=== PATIENT | female | born 1985 | race Caucasian/White ===

== ENCOUNTER → 2020-12-22 10:00 | Outpatient (CLI) | payer OTHER, MEDICAID, SELFPAY ==
--- NOTE | 2020-12-22 10:01 | DI.RAD.S_ITS ---
PROCEDURE: XR FINGER RT MIN 2V INDICATIONS: finger pain TECHNIQUE: AP hand, 2 views of the 3rd finger(s) acquired. COMPARISON: [facility], , FINGER RT, 02/10/2010, 12:34. FINDINGS: Bones: No fractures or dislocations. No suspicious bony lesions. Soft tissues: No suspicious soft tissue calcifications. IMPRESSION: No visualized acute fracture or dislocation. However, if clinical concern and/or pain persist, short interval imaging followup in 7-10 days is recommended, as occult injury cannot be definitively excluded. Dictated by: Odette Moeller M.D. on 12/22/2020 at 10:52 Approved by: Odette Moeller M.D. on 12/22/2020 at 10:53
== END ==
PROVIDERS: Family Provider Family Medicine; PCP Family Medicine; Referring Provider Nurse Practitioner Family; Visit Provider Nurse Practitioner Family
DX: M79.644 Pain in right finger(s) (principal)
CPT/HCPCS: 73140

== ENCOUNTER → 2021-06-25 09:39 | Outpatient (CLI) | payer OTHER, MEDICAID, SELFPAY ==
--- NOTE | 2021-06-25 | DI.US.S_ITS ---
PROCEDURE: US ABDOMEN LIMITED INDICATIONS: SOFT TISSUE MASS MIDLINE UPPER BACK TECHNIQUE: Real-time focused scanning was performed of the inguinal region, with image documentation. COMPARISON: None. FINDINGS: There is an a capsulated fatty mass measuring 4.0 x 3.2 x 1.1 cm in the area palpated by the patient at the midline upper back. IMPRESSION: Soft tissue lipoma. Please note, a lipoma can be difficult to differentiate from the very rare liposarcoma by ultrasound examination. If there is a history of rapid growth, further characterization may be warranted. Dictated by: Zulma Purcell M.D. on 06/25/2021 at 10:56 Approved by: Zulma Purcell M.D. on 06/25/2021 at 10:58
== END ==
PROVIDERS: Family Provider Family Medicine; PCP Family Medicine; Referring Provider Family Medicine; Visit Provider Family Medicine
DX: D17.1 Benign lipomatous neoplasm of skin and subcutaneous tissue of trunk (principal)
CPT/HCPCS: 76705

== ENCOUNTER → 2021-08-03 13:16 | Outpatient (CLI) | payer OTHER, MEDICAID, SELFPAY ==
[2021-08-03 14:08] LABS: COVID19 -Nasal RAPID Negative (Negative)
== END ==
PROVIDERS: Family Provider Family Medicine; PCP Family Medicine; Visit Provider Surgery
DX: Z20.822 Contact with and (suspected) exposure to COVID-19 (principal); Z01.812 Encounter for preprocedural laboratory examination
CPT/HCPCS: 87635; C9803

== ENCOUNTER 2021-08-04 08:14 | Day surgery (SDC) | payer OTHER, MEDICAID, SELFPAY ==
[2021-07-29 12:37] VITALS: BMI 37.9
[2021-08-04] VITALS (7 sets, daily range): BP systolic 107–125; BP diastolic 67–86; PULSE 73–100; RESP 11–20; TEMP 36.1–36.6; O2SAT 97–100; BMI 37.9
--- NOTE | 2021-08-04 | PATH_ITS ---
[facility] Accession Number: [id number] . 01 Material submitted: . back - BACK MASS . 01 Clinical history: . SDC LOCALIZED SWELLING, MASS AND LUMP, TRUNK . 01 Diagnosis: Back, Excision: Mature adipose tissue, consistent with lipoma. MRV 08/07/2021 1051 Local . 01 Electronically signed: . John Bolivar MD, Dermatopathologist NPI- [id number] . 01 Gross description: . Received in formalin, labeled with the patient's name and back mass, and consists of a yellow, lobulated, roughened, unoriented fragment of soft tissue measuring 4.5 x 3.4 x 2.5 cm. The external surface is inked blue. Serial sectioning reveals a yellow, soft, homogenous cut surface. Sales Service Assistant sections are submitted in cassettes A1-A2. ([id number]) /[facility] 08/07/2021 0243 Local . 01 Pathologist provided ICD-10: D17.9 . 01 CPT . 029609 Specimen Comment: A courtesy copy of this report has been sent to [phone] Performed at: 01 [facility] [address] [place] [id number] MD Eliezer Jimenez MD Phone: [phone]
[2021-08-04] MEDS: LACTATED RINGERS 1,000 ML 84 ML IV (09:03)
--- NOTE | 2021-08-04 09:04 | PM.HP.1 ---
History of Present Illness History of Present Illness Date Patient Seen: 08/04/21 Time Patient Seen: 09:04 Chief complaint: SDC Narrative: Sandra is here for her lipoma removal from her left upper back. See the office note from June for details. Patient History Medical History (Updated 08/04/21 @ 08:39 by Annie Arriola RN) COVID-19 virus infection (02/2021) Hidradenitis suppurativa Sinusitis Surgical History (Updated 07/29/21 @ 12:39 by Morena Lutz RN) No history of previous surgery Family & Social History Family History Mother Hypertension Diabetes mellitus Social History: household members significant other Tobacco & Substance use: Smoking Status Former smoker alcohol intake current alcohol intake frequency a few times a month Substance Use Type does not use Meds Home Medications and Allergies Home Medications Medication Instructions Recorded Confirmed Type No Known Home Medications 07/06/21 08/04/21 History Allergies Allergy/AdvReac Type Severity Reaction Status Date / Time ketorolac [From Toradol] Allergy Intermediate Hives Verified 08/04/21 08:37 tramadol Allergy Intermediate Hives Verified 08/04/21 08:37 Exam Vital Signs (past 8 hours): - 08/04/21 09:00 Temperature 98 F Pulse Rate 80 Respiratory Rate 16 Blood Pressure 116/73 Pulse Oximetry 99 Oxygen Delivery Method Room Air Oxygen Delivery Method Room Air Narrative Exam Narrative: Back mass is unchanged from prior exams Assessment & Plan Assessment and plan (1) Subcutaneous mass of back: Status: Acute Plan Plan for excision of the left upper back mass. Patient will be asleep and in the right lateral decubitus position COVID-19 COVID-19 status: Negative Result date/Date tested (Pos, Neg/Pending): 08/03/21 Time Spent With Patient Critical Care time: I spent a total of [] minutes of critical care time on this patient's care today; this time is exclusive of procedural time.
[2021-08-04] MEDS: LIDOCAINE 1% W/EPI 20 ML INJ (09:48)
[2021-08-04] MEDS: BUPIVACAINE 0.25% (PF) VIAL 30 ML INJ (09:49)
--- NOTE | 2021-08-04 09:53 | SUR.OPER ---
LEFT Lateral on a moran bag, head on pillow, gel axillary roll in place, bottom leg bent with gel pad under knee to foot, upper leg straight and supported with pillows. Upper arm supported by pillows and secured over bottom arm to padded arm board. Safety belt at hip, tape over blanket lower legs.
--- NOTE | 2021-08-04 10:30 | PM.OP.1 ---
Operative Date/Time/Diagnoses Date of procedure: 08/04/21 Time of procedure: 10:30 Pre-op diagnosis: Back mass Procedure & Clinicians Procedure: Excisional biopsy of left upper back mass Same procedure as scheduled: Yes Surgeon: Cyril Cedeño Operative Notes Procedure in detail: The patient was brought to the operating room and general anesthesia was induced. Antibiotics were required due to the wound class of 1. Patient was then positioned in the right lateral decubitus positions of the her left side was facing up. The left upper back was prepped and draped in the usual fashion and a time-out was performed. We injected lidocaine into the skin and subcutaneous tissue over the mass and then created a 5 cm transverse incision over the mass. Mass was deep and lying along the left trapezius muscle fascia. Additional local was injected along the trapezius muscle fascia. Mass was about 5 cm and appeared to be a lipoma. A few bleeders were cauterized. We then injected Marcaine into the wound and the dermis. We then closed the incision in layers using multiple interrupted 3-0 Vicryl dermal sutures followed by a running 4 Monocryl subcuticular stitch. Post-operative Condition: stable Disposition: PACU
[2021-08-04] MEDS: OXYCODONE/ACETAMINOPHEN 5/325 TABLET 1 TAB PO (10:38)
[2021-08-04] MEDS: ONDANSETRON 4 MG/2 ML INJ IV (10:39)
== END 2021-08-04 11:20 | disposition home or self-care (01) ==
PROVIDERS: Family Provider Family Medicine; PCP Family Medicine; Referring Provider Surgery; Visit Provider Surgery
PROC: (CPT 21931; principal; 2021-08-04 09:15)
DX: D17.1 Benign lipomatous neoplasm of skin and subcutaneous tissue of trunk (principal); Z86.16 Personal history of COVID-19
CPT/HCPCS: 21931; 81025; J1100; J2250; J2405; J2704; J3010

== ENCOUNTER 2021-09-06 19:47 | Emergency (ER) | payer OTHER, MEDICAID, SELFPAY ==
[2021-09-06 20:06] VITALS: BP 128/88; PULSE 77; RESP 20; TEMP 37.1; O2SAT 100; BMI 36.9
--- NOTE | 2021-09-06 21:05 | PC.NURSE ---
Pt states she has had all other wisdom teeth removed except for her bottom left one. She said the tooth has now cracked and is causing her significant pain. Also, states she has a very bad taste in her mouth. She is 8 weeks . Reports taking more tylenol than she probably should she states she takes 2 Tylenol every 4-5 hours.
--- NOTE | 2021-09-06 22:11 | ED.DENTAL ---
HPI - Dental/Oral General Chief complaint: Dental/Oral Stated complaint: TOOTH INFECTION, 8 WEEKS Time Seen by Provider: 09/06/21 22:10 Source: patient Mode of arrival: Ambulatory History of Present Illness HPI Narrative: 36-year-old woman presents with significant dental pain. After waiting 2 hours and 24 minutes she felt that the weight was excessive and after I walked into the room she declined any additional help, evaluation, examination or recommendations and chose to leave the emergency department. Related Data Allergies Allergy/AdvReac Type Severity Reaction Status Date / Time ketorolac [From Toradol] Allergy Intermediate Hives Verified 09/06/21 20:05 tramadol Allergy Intermediate Hives Verified 09/06/21 20:05 Patient History Medical History (Updated 09/06/21 @ 22:13 by Marga Malhotra MD) COVID-19 virus infection (02/2021) Hidradenitis suppurativa Sinusitis Surgical History (Updated 08/19/21 @ 09:35 by Natanael Burciaga RN) S/P excision of lipoma Family History Mother Hypertension Diabetes mellitus Social History household members: significant other Smoking Status: Former smoker alcohol intake: current Smoking Status: Former smoker alcohol intake frequency: a few times a month Substance Use Type: does not use Exam Initial Vital Signs Initial Vital Signs: Vital Signs Temperature 98.8 F 09/06/21 20:06 Pulse Rate 77 09/06/21 20:06 Respiratory Rate 20 09/06/21 20:06 Blood Pressure 128/88 09/06/21 20:06 Pulse Oximetry 100 09/06/21 20:06 Oxygen Delivery Method 09/06/21 20:06 Course Vital Signs Vital signs: Vital Signs - 8 hr 09/06/21 20:06 Temperature 98.8 F Pulse Rate 77 Respiratory Rate 20 Blood Pressure 128/88 Pulse Oximetry 100 Oxygen Delivery Method Room Air MDM - Dental/Oral MDM Narrative Medical decision making narrative: No exam done, patient chose to leave immediately after introductions. Discharge Plan Departure Patient Disposition: Home Clinical Impression: Pain, dental Referrals: Joseph Garcia MD [Primary Care Provider] -
== END 2021-09-06 22:18 | disposition home or self-care (01) ==
PROVIDERS: Emergency Provider Emergency Medicine; Family Provider Family Medicine; PCP Family Medicine
DX: K08.89 Other specified disorders of teeth and supporting structures (principal)
CPT/HCPCS: 99281

== ENCOUNTER → 2021-09-23 09:45 | Outpatient (CLI) | payer OTHER, MEDICAID, SELFPAY ==
--- NOTE | 2021-09-23 09:46 | DI.US.S_ITS ---
PROCEDURE: US OB <= 14 WEEKS FETUS INDICATIONS: dating and viability OUTSIDE/PRIOR DATING DATA: Last menstrual period (LMP): 07/13/2021. LMP-based estimated date of delivery (HARSH): 04/19/2022. First dating scan (date and location): 09/23/2021. TECHNIQUE: Real-time scanning was performed of the fetus and maternal pelvic organs, with image documentation. Endovaginal scanning was also performed to better visualize the fetus and maternal ovaries. COMPARISON: None. FINDINGS: Embryo: An intrauterine gestation is seen. No cardiac activity is seen, despite multiple attempts. Subchorionic hemorrhage is seen on the right, measuring 1.2 x 0.7 x 0.5 cm. The crown-rump length measures 2 cm, which corresponds to an estimated gestational age of 8 weeks 4 days. Maternal organs: Ovaries are within normal limits, with a likely left corpus luteum. IMPRESSION: demise, with no cardiac activity seen, despite multiple attempts. A small focus of perigestational hemorrhage can be seen. Note: Concordant preliminary findings given by the mediator upon the completion of the examination to Dr. De La Rosa at 10:20 a.m. on September 23, 2021. We strive to produce accurate, complete, and clear reports of imaging services. To assist us in improving patient care, this report was composed using standard report templates and voice recognition software. Therefore, it may contain abnormal punctuation, insertions and/or omissions. Occasional wrong-word or sound-alike substitutions may occur. Though we review the report and make efforts to correct it, we do recommend that the report be read carefully in proper context to recognize any text inaccuracies. Dictated by: Martin Rodriguez M.D. on 09/23/2021 at 10:58 Approved by: Martin Rodriguez M.D. on 09/23/2021 at 11:01
[2021-09-23 11:17] LABS: Add Manual Diff / Slide Review NO; Basophils Absolute Auto 100 /uL (0-100); Basophils Percent Auto 0.6 % (0-2); Eosinophils Absolute Auto 300 /uL (0-450); Eosinophils Percent Auto 3.1 % (2-4); Hematocrit 40.3 % (36-46); Hemoglobin 13.9 g/dL (12.0-16.0); Lymphocytes Absolute Auto 2100 /uL (1100-4500); Lymphocytes Percent Auto 23.7 % (25-40); Mean Corpuscular HGB Conc 34.5 % (30-36); Mean Corpuscular Hemoglobin 31.4 PG (26-34); Monocytes Absolute Auto 900 /uL (0-900); Monocytes Percent Auto 10.2 % (3-14); Neutrophils Absolute Auto 5600 /uL (1500-7000); Neutrophils Percent Auto 62.4 % (50-75); Platelet Count 256 X10^3/uL (150-400); Red Blood Cell Count 4.43 X10^6/uL (4.0-5.2); Red Cell Distribution Width 12.1 % (11.6-14.8)
[2021-09-23 12:19] LABS: Appearance Urine UA CLEAR; Bilirubin Urine UA NEGATIVE (NEGATIVE); Color Urine UA YELLOW; Glucose Urine UA NEGATIVE (Negative); Ketones Urine UA NEGATIVE (NEGATIVE); Leukocyte Esterase Urine UA NEGATIVE (NEGATIVE); Nitrite Urine UA NEGATIVE (Negative); Occult Blood Urine UA NEGATIVE (Negative); Protein Urine UA NEGATIVE (Negative); Specific Gravity Urine UA <=1.005 (1.000-1.035); Urobilinogen Urine UA 0.2 E.U./dL (0.2)
[2021-09-23 12:21] LABS: pH Urine UA 6.5 (4.5-8.0)
[2021-09-24 05:20] LABS: RPR Screen Non Reactive (Non Reactive)
[2021-09-24 07:39] LABS: Varicella IgG Antibody 900 index (Immune >165)
[2021-09-24 19:32] LABS: HIV 1 & 2 Ab/Ag 4th Gen Combo NEGATIVE (NEGATIVE); Hepatitis B Surface Antigen NEGATIVE s/c (NEGATIVE); Rubella Antibody IgG 28.5 IU/mL (>15)
[2021-09-24 20:04] LABS: Hep C Virus Ab w/Reflex Quant NEGATIVE s/c (NEGATIVE)
== END ==
PROVIDERS: Family Provider Family Medicine; PCP Family Medicine; Referring Provider Obstetrics & Gynecology; Visit Provider Obstetrics & Gynecology
DX: O02.1 Missed abortion (principal)
CPT/HCPCS: 36415; 76801; 76817; 80055; 81003; 86787; 86803; 86850; 86900; 86901; 87086; 87389

== ENCOUNTER 2021-09-29 11:47 | Emergency (ER) | payer OTHER, MEDICAID, SELFPAY ==
[2021-09-29 11:52] VITALS: BP 137/74; PULSE 87; RESP 15; TEMP 35.7; O2SAT 95; BMI 35.9
--- NOTE | 2021-09-29 11:55 | DI.US.S_ITS ---
PROCEDURE: US OB <= 14 WEEKS FETUS INDICATIONS: 11 weeks miscarriage,Dr De La Rosa wanted repeat US OUTSIDE/PRIOR DATING DATA: Last menstrual period (LMP): July 13, 2021 LMP-based estimated date of delivery (HARSH): April 19, 2022 First dating scan (date and location): September 23, 2021 Estimated date of delivery (HARSH) from first dating scan: Applicable TECHNIQUE: Real-time scanning was performed of the fetus and maternal pelvic organs, with image documentation. Endovaginal scanning was also performed to better visualize the fetus and maternal ovaries. COMPARISON: [facility], US, US OB <= 14 WEEKS FETUS, 09/23/2021, 10:02. FINDINGS: Embryo: Intrauterine identified. pole is identified. pole measures 1.8 centimeters corresponding to estimated ultrasound gestational age of 8 weeks 2 days. Heart rate: No heart motion identified. Maternal organs: Probable left corpus luteal cyst noted. IMPRESSION: Intrauterine with ultrasound estimated gestational age of 8 weeks 2 days. No heart motion identified compatible with demise. Dictated by: Jesika Meza MD, PhD on 09/29/2021 at 12:08 Approved by: Jesika Meza MD, PhD on 09/29/2021 at 12:11
--- NOTE | 2021-09-29 12:38 | ED_ITS ---
HPI - General Chief complaint: Vaginal Bleeding Stated complaint: Thinks miscarriage- 11 wks Time Seen by Provider: 09/29/21 12:37 Source: patient Mode of arrival: Ambulatory Limitations: no limitations History of Present Illness HPI Narrative: This is a 36-year-old AB3, last menstrual period 07/13/2021 has recently had OB ultrasound showing no heart tones. Patient has had an incomplete miscarriage. She is scheduled for D&C tomorrow morning at 7:45 a.m.. Early this morning at 3:00 a.m. she started having increasing cramping particularly in her back but also somewhat in her front and vaginal bleeding. She states she had a large amount of bleeding initially. She has not been going through more than a pad an hour. She states she is gone through 1 menstrual pad since then. Patient states no fevers or chills. No lightheadedness or passing out, no chest pain or shortness of breath. She denies any GI or urinary issues. No nausea or vomiting. Patient is following with Dr. De La Rosa for her OBGYN. Related Data Home Medications Medication Instructions Recorded Confirmed doxylamine succinate 25 mg tablet 50 mg PO BEDTIME PRN Sleep 09/14/21 09/30/21 prenat.vits,daryl,rkf-dlcy-alijb 1 tab PO DAILY 09/14/21 09/30/21 pyridoxine (vitamin B6) 100 mg 100 mg PO DAILY 09/14/21 09/30/21 tablet Previous Rx's Medication Instructions Recorded hydrocodone 5 mg-acetaminophen 325 1 tab PO Q6H PRN pain #7 tabs 09/29/21 mg tablet Allergies Allergy/AdvReac Type Severity Reaction Status Date / Time ketorolac [From Toradol] Allergy Intermediate Hives Verified 09/30/21 07:02 tramadol Allergy Intermediate Hives Verified 09/30/21 07:02 Review of Systems Review of Systems ROS Unobtainable: All systems reviewed & are unremarkable except as noted in HPI and below Exam Narrative Exam Narrative: GENERAL: Alert and oriented x three, female in mild distress HEENT: Head normocephalic, atraumatic, EOMI, pupils reactive, face symmetric, moist mucous membranes NECK: Supple, full range of motion CARDIOVASCULAR: Regular rate and rhythm without murmurs, rubs or gallops. RESPIRATORY: Breath sounds equal bilaterally, no wheezes rales or rhonchi. ABDOMEN: Soft, mildly tender. Normoactive bowel sounds all 4 quadrants. No guarding or rebound, rigidity, no mass : No CVA tenderness EXTREMITIES: Normal range of motion, no clubbing or edema. Neurovascularly intact NEUROLOGICAL: Cranial nerves II through XII grossly intact. Moving all extremities SKIN: Warm, dry, no petechiae, no rashes or lesions. Initial Vital Signs Initial Vital Signs: Vital Signs Temperature 96.3 F L 09/29/21 11:52 Pulse Rate 87 09/29/21 11:52 Respiratory Rate 15 09/29/21 11:52 Blood Pressure 137/74 09/29/21 11:52 Pulse Oximetry 95 09/29/21 11:52 Oxygen Delivery Method 09/29/21 11:52 Course Orders Ordered: Discontinued Medications Acetaminophen (Acetaminophen 325 Mg Tablet) 975 mg PO NOW ONE Stop: 09/29/21 13:23 Last Admin: 09/29/21 13:56 Dose: Not Given Documented By: PETE Hydrocodone Bitart/Acetaminophen (Hydrocodone/Acet 5/325 Tablet) 2 tab PO NOW ONE Stop: 09/29/21 13:33 Last Admin: 09/29/21 13:49 Dose: 2 tab Documented By: PETE(2) Rho Immune Globulin (Rho(D) Immune Globulin 1,500 Unit Syringe) 1,500 unit IM NOW ONE Stop: 09/29/21 13:27 Last Admin: 09/29/21 13:49 Dose: 1,500 unit Documented By: PETE(2) Consultations Consultation #1: Spoke with Dr. De La Rosa patient's OBGYN. Reviewed her ultrasound findings today we attempted to get blood work but she has required multiple attempts at lab draw her vitals are stable and would not continue to attempt at this time. Patient is not having significant active bleeding in the department. Dr. De La Rosa states would unable to get her to the OR until 9:00 pm. tonight. He does recomm end RhoGAM given today. Vital Signs Vital signs: Vital Signs - 8 hr 09/29/21 11:52 Temperature 96.3 F L Pulse Rate 87 Respiratory Rate 15 Blood Pressure 137/74 Pulse Oximetry 95 Oxygen Delivery Method Room Air MDM - OB/Uterine Contractions Lab Data Labs: Lab Results 09/29/21 Range/Units 13:06 SARS-CoV-2 (PCR) Negative (Negative) Imaging Data US - OB: Radiologist's Impression: [address] [address] Ultrasound Report Signed Patient: Sandra Pennington MR#: [id number] : 1985 Acct:[id number] Age/Sex: 36 / F Date of Service: 09/29/21 Loc: ED Accession Number: [id number] ?? Procedure: US OB <= 14 weeks fetus Ordering Provider: Scarlet Newsome D.O. PROCEDURE:? US OB <= 14 WEEKS FETUS ? INDICATIONS:? 11 weeks miscarriage,Dr De La Rosa wanted repeat US ? OUTSIDE/PRIOR DATING DATA:? Last menstrual period (LMP):? July 13, 2021 LMP-based estimated date of delivery (HARSH):? April 19, 2022 First dating scan (date and location):? September 23, 2021 Estimated date of delivery (HARSH) from first dating scan:? Applicable ? TECHNIQUE:? Real-time scanning was performed of the fetus and maternal pelvic organs, with image documentation.? Endovaginal scanning was also performed to better visualize the fetus and maternal ovaries.? ? COMPARISON:? [facility], US OB <= 14 WEEKS FETUS, 09/23/2021, 10:02. ? FINDINGS:? ? Embryo:? Intrauterine identified.? pole is identified.? pole measures 1.8 centimeters corresponding to estimated ultrasound gestational age of 8 weeks 2 days. Heart rate:? No heart motion identified. ? Maternal organs:? Probable left corpus luteal cyst noted. ? ? IMPRESSION:? Intrauterine with ultrasound estimated gestational age of 8 weeks 2 days.? No heart motion identified compatible with demise. ? ? ? Dictated by: Jesika Meza MD, PhD on 09/29/2021 at 12:08 ? ? Approved by: Jesika Meza MD, PhD on 09/29/2021 at 12:11 MDM Narrative Medical decision making narrative: 36-year-old female with known incomplete miscarriage she began having increasing bleeding today and cramping. She is scheduled tomorrow morning with her OBGYN for D&C here at this facility. Ultrasound does not show any new acute changes had difficulty obtaining blood but vitals are stable here and patient does not wish to have more attempts and I do not feel it is required at this time. Patient has not had any large amounts of bleeding persisting in the department. We discussed that they would be unable to take her to the OR until 9:00 p.m. in the evening tonight and she feels comfortable returning home with return precautions, short course of pain medication and plan for D and C in the morning. Patient given Rhogam here in the department. She feels comfortable returning home she states she has not had any additional vaginal bleeding on recheck. We did discuss return precautions. Discharge Plan Departure Patient Disposition: Home Clinical Impression: Incomplete miscarriage Instructions: Dealing With Miscarriage Activity Restrictions/Additional Instructions: Follow-up tomorrow for your appointment for D&C with Dr. De La Rosa. Continue to follow their instructions regarding current plan of care. You may take [place] 1-2 tablets every 6 hours as needed for pain. This medication can make you sleepy do not drive, perform hazardous activities or make any major decisions while taking it. This medication will make you constipated please take a stool softener once to twice daily until stools are soft and regular. Prescription sent to [facility] in [place] Please return for fevers, rapidly worsening pain, passing out, persistent vomiting, going through more than 1 menstrual pad hourly, very large amounts of clots or other new or concerning symptoms. Prescriptions: New hydrocodone-acetaminophen 5-325 mg tablet 1 tab PO Q6H PRN (Reason: pain) Qty: 7 0RF No Action prenat.vits,daryl,lxa-qeul-raabo Tablet 1 tab PO DAILY pyridoxine (vitamin B6) 100 mg tablet 100 mg PO DAILY doxylamine succinate 25 mg tablet 50 mg PO BEDTIME PRN (Reason: Sleep) Referrals: Joseph Garcia MD [Primary Care Provider] - Visit Report Forms: Patient Portal/API
[2021-09-29] MEDS: HYDROCODONE/ACET 5/325 TABLET 2 TAB PO (13:49)
[2021-09-29] MEDS: RHO(D) IMMUNE GLOBULIN 1,500 UNIT SYRINGE 1500 UNIT IM (13:49)
[2021-09-29 13:52] VITALS: BP 149/79; PULSE 75; RESP 18; TEMP 36.6; O2SAT 99
[2021-09-29 14:16] LABS: COVID19 -Nasal RAPID Negative (Negative)
== END 2021-09-29 13:56 | disposition home or self-care (01) ==
PROVIDERS: Emergency Provider Emergency Medicine; Family Provider Family Medicine; PCP Family Medicine; Referring Provider Obstetrics & Gynecology
DX: O03.4 Incomplete spontaneous abortion without complication (principal)
CPT/HCPCS: 76801; 76817; 87635; 96372; 99283; C9803; J2790

== ENCOUNTER 2021-09-30 06:43 | Day surgery (SDC) | payer OTHER, MEDICAID, SELFPAY ==
[2021-09-29 07:21] VITALS: BMI 36.4
[2021-09-30] VITALS (8 sets, daily range): BP systolic 95–149; BP diastolic 56–74; PULSE 54–84; RESP 12–20; TEMP 36.2–36.6; O2SAT 95–99; BMI 36.4
--- NOTE | 2021-09-30 | PATH_ITS ---
[facility] Accession Number: [id number] No. of containers..01 Tissue . 01 Material submitted: . product of conception - PRODUCTS OF CONCEPTION . 01 Clinical history: . SUCTION D/C . 01 Diagnosis: Uterine Contents: Immature chorionic villi, tissue, and decidua. Negative for changes diagnostic of gestational trophoblastic disease. [facility] 10/02/2021 1608 Local . 01 Electronically signed: . Clarissa Edwards MD, Pathologist NPI- [id number] . 01 Gross description: . Received in formalin, labeled with the patient's name and products of conception, and consists of multiple fragments of sims, spongy to membranous soft tissue admixed with hemorrhagic material aggregating to 8.2 x 6.5 x 1.4 cm. No tissue is identified. Software Test Automation Engineer sections are submitted in cassettes A1-A2. ([id number]) /[facility] 10/01/2021 1733 Local . 01 Pathologist provided ICD-10: O02.1 . 01 CPT . 989987 Specimen Comment: A courtesy copy of this report has been sent to [phone] Performed at: 01 [facility] [address] [place] [address], [place], [place] [id number] MD Eliezer Jimenez MD Phone: [phone]
[2021-09-30] MEDS: LACTATED RINGERS 1,000 ML 42 ML IV (07:13)
--- NOTE | 2021-09-30 07:41 | PM.PREOP ---
Pre-operative Note COVID-19 COVID-19 status: Negative Result date/Date tested (Pos, Neg/Pending): 09/29/21 Criteria for continued procedure: Non-surgical alternatives not available or appropriate per current SOC Interval Note History & Physical reviewed/Exam performed by Physician: Yes Changes to H&P: No
--- NOTE | 2021-09-30 08:06 | SUR.OPER ---
Lithotomy on padded OR bed, head on pillow, arms secured on padded arm boards at <90 degrees abduction. Legs secured in padded yellow fins stirrups.
--- NOTE | 2021-09-30 08:22 | PM.GYNOP.1 ---
Operative Date/Time/Diagnoses Date of procedure: 09/30/21 Time of procedure: 07:45 Pre-op diagnosis: Missed Post-op diagnosis: same Procedure & Clinicians Procedure: Procedures Operation Date: 09/30/21 07:45 Actual Procedure Side Surgeon p suction curettage of the uterus Aaron De La Rosa MD Indications: Sandra is a 36-year-old [id number], LMP 07/13/2021 Who had an initial OB dating ultrasound performed on 09/23/2021 which showed a nonviable 8 week 4 day embryo.? Patient has had a single episode of spotting following intercourse and some slight cramping but no bleeding and has not passed tissue.? Patient's blood type is B negative and she received Rhogam IM yesterday during her ED visit for bleeding and cramping. Surgeon: Aaron De La Rosa Anesthesia Type: General Operative Notes Findings: Pre evacuation, the uterus is approximately 8-10 weeks in size and mid to retroverted. Post evacuation uterus approximately 8 weeks in size. Moderate amount of necrotic products of conception obtained and submitted as a single pathologic specimen Closure Type: not applicable Specimen(s): products of conception Estimated blood loss (mL): 25 Blood products transfused: none Procedure in detail: With the patient under satisfactory general anesthesia in the modified dorsal lithotomy position, the perineum, vagina, and lower abdomen were prepped and draped in the usual fashion for D&C. A pre-surgical safety time-out was then taken in accordance with [facility] Main OR protocols. Bimanual examination under anesthesia was then performed. A bivalve speculum was inserted in the vagina and the cervix easily visualized. The anterior lip of the cervix was then grasped with a single-tooth tenaculum and the cervix gently dilated to 9 mm diameter with Hegar dilators. An 8 mm curved suction curette was then introduced into the uterine cavity and suction curettage accomplished in all quadrants in the usual manner. Gentle sharp curettage was then applied to confirm that the uterus was indeed empty and a final pass with the suction curette was then performed with no additional tissue obtained. Once complete evacuation of the uterus was confirmed, the single-tooth tenaculum was removed from the anterior lip of the cervix and hemostasis of the puncture sites achieved by application of Allis clamps to the puncture sites which were bleeding slightly. Once complete hemostasis was assured, Allis clamps were removed and the speculum removed the vagina. Patient was then awakened from anesthesia and transferred to the PACU for a period of observation and recovery tolerated procedure well. Complications: none Post-operative Condition: stable Disposition: PACU Plan for aftercare: Routine postoperative care. Vibramycin 1 mg p.o. b.i.d. x5 days for antibiotic prophylaxis. Follow-up will be scheduled for 2 weeks postop.
[2021-09-30] MEDS: HYDROCODONE/ACET 5/325 TABLET 1 TAB PO (08:37)
--- NOTE | 2021-09-30 08:39 | SUR.PHASEI ---
5224 Dr De La Rosa at bedside. Pt joslyn-pad viewed. Scant drainage. MD recommended patient to take Ibuprofen 600mg Q6hrs at home prn. First dose to start now. Alternate with Tylenol.
[2021-09-30] MEDS: IBUPROFEN 600 MG TABLET PO (08:58)
== END 2021-09-30 09:20 | disposition home or self-care (01) ==
PROVIDERS: Family Provider Family Medicine; PCP Family Medicine; Referring Provider Obstetrics & Gynecology; Visit Provider Obstetrics & Gynecology
PROC: (CPT 58120; principal; 2021-09-30 07:45)
DX: O02.1 Missed abortion (principal); Z3A.08 8 weeks gestation of pregnancy
CPT/HCPCS: 59820; J1100; J2250; J2405; J2704; J3010

== ENCOUNTER → 2022-03-24 09:43 | Outpatient (CLI) | payer OTHER, MEDICAID, SELFPAY ==
--- NOTE | 2022-03-24 09:44 | DI.US.S_ITS ---
PROCEDURE: US OB <= 14 WEEKS FETUS INDICATIONS: Dating and viability OUTSIDE/PRIOR DATING DATA: Last menstrual period (LMP): 01/21/2022 LMP-based estimated date of delivery (HARSH): 10/28/2022. First dating scan (date and location): 03/24/2022. Estimated date of delivery (HARSH) from first dating scan: 11/01/2022. TECHNIQUE: Real-time scanning was performed of the fetus and maternal pelvic organs, with image documentation. Endovaginal scanning was also performed to better visualize the fetus and maternal ovaries. COMPARISON: None from this . FINDINGS: Embryo: [place]-rump length of 1.8 centimeters corresponding to gestational age of 8 weeks 2 days Heart rate: 158 beats per minute Maternal organs: Ovaries are unremarkable. IMPRESSION: Single living intrauterine with HARSH of 11/01/2022 by crown-rump length, concordant with clinical dates. We strive to produce accurate, complete, and clear reports of imaging services. To assist us in improving patient care, this report was composed using standard report templates and voice recognition software. Therefore, it may contain abnormal punctuation, insertions and/or omissions. Occasional wrong-word or sound-alike substitutions may occur. Though we review the report and make efforts to correct it, we do recommend that the report be read carefully in proper context to recognize any text inaccuracies. Dictated by: Anand Ya M.D. on 03/24/2022 at 17:02 Approved by: Anand Ya M.D. on 03/24/2022 at 17:06
== END ==
PROVIDERS: Family Provider Family Medicine; PCP Family Medicine; Referring Provider Obstetrics & Gynecology; Visit Provider Obstetrics & Gynecology
DX: Z36.87 Encounter for antenatal screening for uncertain dates (principal); Z3A.08 8 weeks gestation of pregnancy
CPT/HCPCS: 76801; 76817

== ENCOUNTER → 2022-04-02 10:56 | Outpatient (CLI) | payer OTHER, MEDICAID, SELFPAY ==
--- NOTE | 2022-04-02 | DI.US.S_ITS ---
PROCEDURE: US PERIPH VENOUS LOW EXTREM LT INDICATIONS: Pain in left lower leg TECHNIQUE: Real-time imaging, as well as color and pulse Doppler interrogation, were performed of the lower extremity deep veins from the inguinal ligament to the popliteal fossa. COMPARISON: None. FINDINGS: The common femoral, femoral and popliteal veins are normally compressible, and free of intraluminal thrombus. Color and pulse Doppler demonstrate normal phasic intraluminal flow. There is normal augmentation response to distal compression maneuver. IMPRESSION: Negative for deep venous thrombosis. Dictated by: Martin Rodriguez M.D. on 04/02/2022 at 11:03 Approved by: Martin Rodriguez M.D. on 04/02/2022 at 11:03
== END ==
PROVIDERS: Family Provider Family Medicine; PCP Family Medicine; Referring Provider Family Medicine; Visit Provider Family Medicine
DX: M79.662 Pain in left lower leg (principal)
CPT/HCPCS: 93971

== ENCOUNTER → 2022-04-21 11:32 | Outpatient (CLI) | payer OTHER, MEDICAID, SELFPAY ==
[2022-04-21 14:38] LABS: Urine N gonorrhoeae NOT DETECTED
[2022-04-21 14:39] LABS: Urine Chlamydia NOT DETECTED
== END ==
PROVIDERS: Family Provider Family Medicine; PCP Family Medicine; Visit Provider Obstetrics & Gynecology
DX: Z11.3 Encounter for screening for infections with a predominantly sexual mode of transmission (principal); Z34.81 Encounter for supervision of other normal pregnancy, first trimester
CPT/HCPCS: 87086; 87491; 87591

== ENCOUNTER → 2022-04-21 14:25 | Outpatient (CLI) | payer OTHER, MEDICAID, SELFPAY ==
[2022-04-21 14:45] LABS: Specimen Label NATERA
[2022-04-21 15:05] LABS: Add Manual Diff / Slide Review NO; Basophils Absolute Auto 0 /uL (0-100); Basophils Percent Auto 0.3 % (0-2); Eosinophils Absolute Auto 400 /uL (0-450); Hematocrit 38.1 % (36-46); Hemoglobin 12.9 g/dL (12.0-16.0); Lymphocytes Absolute Auto 3700 /uL (1100-4500); Lymphocytes Percent Auto 26.5 % (25-40); Mean Corpuscular HGB Conc 33.8 % (30-36); Mean Corpuscular Hemoglobin 29.5 PG (26-34); Mean Corpuscular Volume 87.1 fL (80-100); Monocytes Absolute Auto 1200 /uL (0-900); Monocytes Percent Auto 8.7 % (3-14); Neutrophils Absolute Auto 8500 /uL (1500-7000); Neutrophils Percent Auto 61.5 % (50-75); Platelet Count 232 X10^3/uL (150-400); Red Blood Cell Count 4.38 X10^6/uL (4.0-5.2); Red Cell Distribution Width 11.9 % (11.6-14.8); White Blood Cell Count 13.8 X10^3/uL (4.5-11.0)
[2022-04-22 11:36] LABS: Varicella IgG Antibody 208 index (Immune >165)
[2022-04-22 17:00] LABS: Hepatitis B Surface Antigen NEGATIVE s/c (NEGATIVE); Rubella Antibody IgG 31.7 IU/mL (>15)
[2022-04-22 17:14] LABS: HIV 1 & 2 Ab/Ag 4th Gen Combo NEGATIVE (NEGATIVE); Hep C Virus Ab w/Reflex Quant NEGATIVE s/c (NEGATIVE)
[2022-04-24 04:24] LABS: RPR Screen Non Reactive (Non Reactive)
== END ==
PROVIDERS: Family Provider Family Medicine; PCP Family Medicine; Referring Provider Obstetrics & Gynecology; Visit Provider Obstetrics & Gynecology
DX: O09.521 Supervision of elderly multigravida, first trimester (principal); Z11.3 Encounter for screening for infections with a predominantly sexual mode of transmission
CPT/HCPCS: 36415; 80055; 86787; 86803; 86850; 86900; 86901; 87086; 87389; 87491; 87591

== ENCOUNTER → 2022-05-20 11:05 | Outpatient (CLI) | payer OTHER, MEDICAID, SELFPAY ==
[2022-05-24 18:19] LABS: AFP Value 25.6 ng/mL (.); Gest Age on Col Date 16.4 weeks (.); Insulin Dep Diabetes No (.); OSBR Risk 1IN 10000 (.); Results Report (.); Test Results *Screen Negative* (.)
== END ==
PROVIDERS: Family Provider Family Medicine; PCP Family Medicine; Referring Provider Obstetrics & Gynecology; Visit Provider Obstetrics & Gynecology
DX: Z34.82 Encounter for supervision of other normal pregnancy, second trimester (principal); Z3A.16 16 weeks gestation of pregnancy
CPT/HCPCS: 36415; 82105; 87086

== ENCOUNTER → 2022-06-14 10:21 | Outpatient (CLI) | payer OTHER, MEDICAID, SELFPAY ==
--- NOTE | 2022-06-14 10:22 | DI.US.S_ITS ---
PROCEDURE: US OB >= 14 WEEKS FETUS INDICATIONS: 20 Week Anatomy Scan OUTSIDE/PRIOR DATING DATA: Last menstrual period (LMP): 01/21/2022 LMP-based estimated date of delivery (HARSH): 10/28/2022 First dating scan (date and location): 03/24/2022 Estimated date of delivery (HARSH) from first dating scan: 11/01/2022 The calculations are made using the working HARSH of mendez . TECHNIQUE: Real-time scanning was performed of the fetus, with image documentation and biometric measurements. Endovaginal scanning: Not indicated COMPARISON: None. FINDINGS: General: A single living intrauterine gestation is present. Presentation: Transverse with head towards maternal right side. Placenta: Placental position is anterior, without previa. Amniotic fluid index: 15.3 cm, normal range is 5-24 cm. Single deepest vertical pocket is 4.1 cm. heart rate: 144 beats per minute. Maternal cervical canal: 5.2 cm long. Normal lower limit is 2.5 cm. biometrics: Biparietal diameter: 4.7 cm, 20 weeks, 1 day. Head circumference: 17.5 cm, 20 weeks, 0 day. Abdominal circumference: 14.9 cm, 20 weeks, 1 day. Femur length: 3.3 cm, 20 weeks, 2 days. Clinically estimated gestational age: 20 weeks, 4 day Composite gestational age from present scan: 20 weeks, 1 day Estimated weight and percentile: 337 g, 25%. Anatomic survey: Neuro: Ventricles are non-dilated at less than 10 mm. Cisterna magna is normal at 3-11 mm. Cerebellum is normal in size and morphology. Nuchal skin fold: Normal at less than 6 mm between 14-21 weeks gestational age. Face: Nose and lips, facial profile are normal. Spine: No evidence for spina bifida. Heart: 4-chambered heart is present, with normal ventricular outflow tracts. Diaphragm: Diaphragm is intact. Stomach: Left-sided stomach is present. Kidneys: No hydronephrosis. Normal is less than 5 mm in 2nd trimester, less than 7 mm in 3rd trimester. Cord: 3-vessel cord has orthotopic insertion. Bladder: Normal in size. Extremities: All 4 extremities identified. IMPRESSION: 1. Single live intrauterine gestation with fetus in transverse presentation. heart rate is 144 beats per minute. Normal amount of amniotic fluid. Normal growth. Estimated weight is at 25%. 2. Normal anatomic survey. We strive to produce accurate, complete, and clear reports of imaging services. To assist us in improving patient care, this report was composed using standard report templates and voice recognition software. Therefore, it may contain abnormal punctuation, insertions and/or omissions. Occasional wrong-word or sound-alike substitutions may occur. Though we review the report and make efforts to correct it, we do recommend that the report be read carefully in proper context to recognize any text inaccuracies. Dictated by: Jose Bruno M.D. on 06/14/2022 at 14:30 Approved by: Jose Bruno M.D. on 06/14/2022 at 15:04
== END ==
PROVIDERS: Family Provider Family Medicine; PCP Family Medicine; Referring Provider Obstetrics & Gynecology; Visit Provider Obstetrics & Gynecology
DX: Z34.82 Encounter for supervision of other normal pregnancy, second trimester (principal); Z3A.20 20 weeks gestation of pregnancy
CPT/HCPCS: 76811

== ENCOUNTER → 2022-07-30 07:01 | Outpatient (CLI) | payer OTHER, MEDICAID, SELFPAY ==
[2022-07-30 08:57] LABS: Hematocrit 33.4 % (36-46); Hemoglobin 11.5 g/dL (12.0-16.0)
[2022-07-30 09:13] LABS: GTT (PREG) 1 Hour PP 50gm Dose 179 mg/dL (76-139)
== END ==
PROVIDERS: Family Provider Family Medicine; PCP Family Medicine; Referring Provider Obstetrics & Gynecology; Visit Provider Obstetrics & Gynecology
DX: Z34.82 Encounter for supervision of other normal pregnancy, second trimester (principal); Z3A.26 26 weeks gestation of pregnancy
CPT/HCPCS: 36415; 59025; 82950; 85014; 85018; 86850

== ENCOUNTER 2022-07-30 19:04 | Outpatient (CLI) | payer OTHER, MEDICAID, SELFPAY ==
--- NOTE | 2022-07-30 19:59 | PM.OBTRLD ---
Visit Information Visit Information Date of evaluation: 07/30/22 Primary OB Provider: Aaron De La Rosa On-call OB Provider: Lory Fortune Reason for Evaluation: Yes non-stress test and Yes other Comments/Additional reasons for admission: Concerns about pre-term contractions and vaginal bleeding. Sandra is a here tonight complaining of contractions today and vaginal discharge that seems like her mucus plug with small amounts of old blood. When questioned further, has had 5 contractions all day. Baby is active now, but was less active earlier in the day when she was busy. Denies vaginal bleeding. Says she's been drinking lots of water. Vital Signs Vital Signs: 128/69 8i8 bpm 36.8 C [facility] Medical History (Updated 07/30/22 @ 20:14 by Lory Fortune, CNMadison, INFORMATION RECEPTIONIST) COVID-19 virus infection (02/2021) Hidradenitis suppurativa Missed depression Sinusitis Subcutaneous mass of back Surgical History (Updated 05/19/22 @ 19:13 by Kirsten Savage) Anesthesia H/O tooth extraction S/P excision of lipoma (08/04/21) Trigger finger (~11/10/21) [place] teeth extracted Family History (Updated 05/19/22 @ 19:13 by Kirsten Saavge) Mother Hypertension Diabetes mellitus Mental health problem Social History marital status: unmarried,living together number of children: 4 household members: significant other and children lives independently: Yes housing: house pets and animals: Yes (1 cat, aware of toxo, kids manage litter box) education level: high school (11th grade) occupational status: employed current occupational exposures/hazards: Yes special juan needs: No seatbelt use: always water heater temp set < 120 deg: Yes working smoke detector in home: Yes fire extinguisher in home: Yes carbon monox detector in home: Yes firearms in home: No do you feel safe at home: Yes Smoking Status: Former smoker Tobacco: How many years used: 20 second hand exposure: No alcohol intake: current substance use type: marijuana (in the past, not recently) during the past year weight has: decreased > 10 lbs well-balanced diet: daily or most days daily servings fruits/ve-4 caffeine: No Type(s) of exercise: walking and other (hiking) frequency: daily additional social history: Pt reports no changes from previous , telephone intake only last completed ~5 months ago and as an experienced mother pt denies a need to repeat this intake. Review of Systems Review of Systems Narrative: All negative except as seen in HPI> Exam Vital Signs (past 8 hours): see above. WNL/stable. Evaluation Evaluation Baseline heart rate: 135 Variability: Moderate (11-25) monitor accelerations: Present Monitor Decelerations: Variable Contraction Frequency (minutes): 0 Category of Tracing: Reactive Diagnosis, Plan/Disposition Final Diagnosis (1) Encounter for supervision of normal , unspecified, second trimester: Status: Acute Problem details: NOT in labor (2) Advanced maternal age (AMA) in : Status: Acute (3) NST (non-stress test) reactive: Status: Acute Plan/Disposition Plan: Discharge home. Recommend hydration - at least 90 oz of clear fluids daily. If notices more than 4 contractions per hour, start by hydrating, resting, voiding, snacking. If contractions become regular with more than 6 per hour, call OB provider. Review normal vaginal discharge in .
--- NOTE | 2022-08-06 03:41 | PM.CALLCOV.1 ---
Call Coverage Note Note Date of Patient Contact: 08/05/22 Time of Patient Contact: 19:50 Narrative of Care Provided: Sandra called to report bleeding since she got home from the hospital today. Had a TVUS to check cervical length after contractions. Contractions have come back, dull pain midline near her pubic bone, not as intense as they were earlier today. Bleeding is more concerning. So far saw dime size of bright red blood on underwear, more when she wiped. Has a pad on now. Review that bleeding after TVUS can be normal; to watch for more bleeidng or intense cramping and call back if this happens. Brown or dark bleeding is okay.
== END 2022-07-30 20:04 | disposition home or self-care (01) ==
LOC: OB 08-03 06:12
PROVIDERS: Family Provider Family Medicine; PCP Family Medicine; Referring Provider Nurse Practitioner Obstetrics & Gynecology; Visit Provider Nurse Practitioner Obstetrics & Gynecology
DX: O47.02 False labor before 37 completed weeks of gestation, second trimester (principal); Z3A.27 27 weeks gestation of pregnancy; Z36.89 Encounter for other specified antenatal screening; Z34.82 Encounter for supervision of other normal pregnancy, second trimester; Z3A.26 26 weeks gestation of pregnancy
CPT/HCPCS: 36415; 82950; 85014; 85018; 86850; G0378; G0379

== ENCOUNTER 2022-08-02 11:33 | Outpatient (CLI) | payer OTHER, MEDICAID, SELFPAY ==
[2022-08-02 15:09] LABS: Fetal Fibronectin Positive
== END 2022-08-02 14:37 | disposition home or self-care (01) ==
LOC: LABOR 12:28 → OB 08-09 07:33
PROVIDERS: Family Provider Family Medicine; PCP Family Medicine; Referring Provider Obstetrics & Gynecology; Visit Provider Obstetrics & Gynecology
DX: O60.02 Preterm labor without delivery, second trimester (principal); O09.522 Supervision of elderly multigravida, second trimester; Z3A.27 27 weeks gestation of pregnancy
CPT/HCPCS: 59025; 82731; G0378; G0379

== ENCOUNTER 2022-08-05 11:33 | Observation (INO) | payer OTHER, MEDICAID, SELFPAY ==
--- NOTE | 2022-08-05 13:05 | DI.US.S_ITS ---
PROCEDURE: US OB >= 14 WEEKS FETUS INDICATIONS: ROL/Cervical length OUTSIDE/PRIOR DATING DATA: Last menstrual period (LMP): 01/21/2022. LMP-based estimated date of delivery (HARSH): 10/28/2022. First dating scan (date and location): 03/24/2022. Estimated date of delivery (HARSH) from first dating scan: 11/01/2022. The calculations are made using the working HARSH of 11/01/2022. TECHNIQUE: Real-time scanning was performed of the fetus, with image documentation and biometric measurements. COMPARISON: [facility], OB >= 14 WEEKS FETUS, 06/14/2022, 10:25. FINDINGS: General: A single living intrauterine gestation is present. Presentation: Breech. Placenta: Placental position is anterior , without previa. Amniotic fluid index: 11.6 cm, normal range is 5-24 cm. Single deepest vertical pocket is 4.1 cm. heart rate: 140 beats per minute. Maternal cervical canal: 5.2 cm long. Normal lower limit is 2.5 cm. Anatomic survey: Neuro: Ventricles are non-dilated at less than 10 mm. Cisterna magna is normal at 3-11 mm. Cerebellum is normal in size and morphology. Nuchal skin fold: Normal at less than 6 mm between 14-21 weeks gestational age. Face: Nose and lips, facial profile are normal. Spine: No evidence for spina bifida. Heart: 4-chambered heart is present, with normal ventricular outflow tracts. Diaphragm: Diaphragm is intact. Stomach: Left-sided stomach is present. Kidneys: No hydronephrosis. Normal is less than 5 mm in 2nd trimester, less than 7 mm in 3rd trimester. Cord: 3-vessel cord has orthotopic insertion. Bladder: Normal in size. Extremities: All 4 extremities identified. IMPRESSION: 1. A single living intrauterine gestation redemonstrated. 2. LOUANN 11.6 cm. 3. Cervix is closed measuring 5.2 cm. We strive to produce accurate, complete, and clear reports of imaging services. To assist us in improving patient care, this report was composed using standard report templates and voice recognition software. Therefore, it may contain abnormal punctuation, insertions and/or omissions. Occasional wrong-word or sound-alike substitutions may occur. Though we review the report and make efforts to correct it, we do recommend that the report be read carefully in proper context to recognize any text inaccuracies. Dictated by: Kyaw Lion M.D. on 08/05/2022 at 14:40 Approved by: Kyaw Lion M.D. on 08/05/2022 at 19:19
== END 2022-08-05 13:37 | disposition home or self-care (01) ==
PROVIDERS: Admitting Provider Obstetrics & Gynecology; Family Provider Family Medicine; PCP Family Medicine; Referring Provider Obstetrics & Gynecology; Visit Provider Obstetrics & Gynecology
DX: Z03.71 Encounter for suspected problem with amniotic cavity and membrane ruled out (principal); O60.02 Preterm labor without delivery, second trimester; O09.522 Supervision of elderly multigravida, second trimester; Z3A.27 27 weeks gestation of pregnancy
CPT/HCPCS: 59025; 59050; 76811; 84112; G0378; G0379

== ENCOUNTER → 2022-08-11 06:48 | Outpatient (CLI) | payer OTHER, MEDICAID, SELFPAY ==
[2022-08-11 09:50] LABS: Glucose 1 Hour Gest 176 mg/dL (76-180)
[2022-08-11 09:50] LABS: Glucose Fasting Gestational 83 mg/dL (76-95)
[2022-08-11 10:19] LABS: Glucose Tol Interp,Gestational INTERPRETATION
[2022-08-11 11:00] LABS: Glucose 2 Hour Gest 165 mg/dL (76-155)
[2022-08-11 11:03] LABS: Glucose 3 Hour Gest 153 mg/dL (76-140)
== END ==
PROVIDERS: Family Provider Family Medicine; PCP Family Medicine; Referring Provider Obstetrics & Gynecology; Visit Provider Obstetrics & Gynecology
DX: O99.810 Abnormal glucose complicating pregnancy (principal); Z3A.00 Weeks of gestation of pregnancy not specified
CPT/HCPCS: 36415; 82951; 82952

== ENCOUNTER → 2022-09-03 12:50 | Outpatient (CLI) | payer OTHER, MEDICAID, SELFPAY ==
--- NOTE | 2022-09-03 13:01 | DIAB.MNT ---
Initial Diabetes Medical Nutrition Therapy Assessment Name: Sandra Pennington Date: 09/03/22 Time: 1pm Dx: Gestational Diabetes will be 32w gestation on Tuesday Pt currently engaged with 4 children, all school aged. Pt on modified bedrest which she finds difficult to comply with as kids are all out of school for the summer. Provider: Rj Diet Recall: Wakes 6am and checks FBG Drinks at least 8 bottles water daily, but did this before , Aquafina. 1 cup coffee c SF creamer (normal for her) Hour later takes protein drink Premier Protein. takes , metformin and steroid 10:30am: cottage cheese or apple and peanut butter or bowl of peas Lunch: sandwiches with heated meat and cheese on whole grain bread Sn: string cheese and beef jerky D: protein and mac n cheese and cucumbers usually no bedtime snack Pt states she is eating more volume than prior to and is focusing on high quality protein sources. She is afraid that elevated BGs will hurt her baby so is nervous of having BGs near highest acceptable level. Currently pt has excellent glycemic management. Pt craving candy, but hasn't eaten any to date. Pt avoiding drinking milk as she heard this elevates BG. Pt checking BG as requested. Physical Activity: Currently on modified bed rest Self-Monitoring Blood Glucose: Started monitoring BG August 15 One 94 FBG most 80-85 range 1h PP average 97-110, one 136 which scared her Pt afraid of needles so doesn't think she could give herself insulin injections. Date FBG Post Pre Post Pre Post HS 80-85, none over 95 107, 104, 97 highest 136 Diabetes Medications: taking 850mg Metformin bid- no GI complaints Pertinent Labs: Past Medical History: (Last Updated 05/19/22 @ 19:13 by Kirsten Savage) COVID-19 virus infection (02/2021) Hidradenitis suppurativa axillary Missed depression Sinusitis Subcutaneous mass of back lipoma removed 08/19/21 Nutrition Rx: Carbohydrates: Meal: B 30g, L+D 45g Snack: 15-30 Nutrition Diagnosis: altered laboratory values (GTT) r/t endocrine dysfunction in aeb elevation in 2 of 3 markers of 3h GTT, pt diagnosed with gestational diabetes. - Intervention: This participant was very receptive. Provided appropriate educational handouts. Discussed the following topics: Completed intake assessment. Discussed barriers to care. Pathophysiology of GDM Importance of self-monitoring, how often, and when to check. Suggested checking at different times to evaluate meals Plate Method, impact of macronutrients on blood sugar, meal timing, carbohydrate counting, pairing macronutrients and spreading out carbohydrates for better blood glucose management Recommended servings for carbohydrates at meals and snacks Brainstormed appropriate meal plan based on food preferences Created SMART goals for patient self-care and success. Goals: To better understand carbohydrate tolerance, pt will add a small portion of a variety of foods (one at a time) at meal time to see how they impact BG ie. glass whole milk, 1/3c rice, small portion high fiber breakfast cereal, etc. This will help pt increase confidence in eating and ensure she is eating to fullness. Follow-up: RDN follow-up in 2 weeks via telehealth due to pts modified bed rest Dacia Majano MS RD P: [phone] Thank you for this referral
== END ==
PROVIDERS: Absent Provider Family Medicine; Family Provider Family Medicine; PCP Family Medicine; Referring Provider Obstetrics & Gynecology; Visit Provider Obstetrics & Gynecology
DX: O24.415 Gestational diabetes mellitus in pregnancy, controlled by oral hypoglycemic drugs (principal); Z3A.31 31 weeks gestation of pregnancy; Z71.3 Dietary counseling and surveillance
CPT/HCPCS: 97802

== ENCOUNTER 2022-09-07 09:58 | Outpatient (CLI) | payer OTHER, MEDICAID, SELFPAY ==
[2022-09-07 11:44] LABS: Appearance Urine UA CLEAR; Bilirubin Urine UA NEGATIVE (NEGATIVE); Color Urine UA YELLOW; Glucose Urine UA NEGATIVE (Negative); Ketones Urine UA TRACE (NEGATIVE); Leukocyte Esterase Urine UA NEGATIVE (NEGATIVE); Nitrite Urine UA NEGATIVE (Negative); Occult Blood Urine UA NEGATIVE (Negative); Protein Urine UA NEGATIVE (Negative)
[2022-09-07 12:10] LABS: Bacteria Urine Occasional (0-1); Culture Indicated Urine Cult Not Indicated; RBC Urine 0-1/HPF (0-5/HPF); Squamous Epithelial Cell Urine 1-5 /HPF (0-5/HPF); WBC Urine 1-5/HPF (0-5/HPF)
[2022-09-07 12:18] LABS: Fetal Fibronectin Negative
== END 2022-09-07 11:45 | disposition home or self-care (01) ==
LOC: LABOR 12:06 → OB 09-09 07:39
PROVIDERS: Family Provider Family Medicine; PCP Family Medicine; Referring Provider Obstetrics & Gynecology; Visit Provider Obstetrics & Gynecology
DX: O60.03 Preterm labor without delivery, third trimester (principal); O09.523 Supervision of elderly multigravida, third trimester; Z3A.32 32 weeks gestation of pregnancy
CPT/HCPCS: 59025; 81001; 82731; G0378; G0379

== ENCOUNTER → 2022-09-17 09:03 | Outpatient (CLI) | payer OTHER, MEDICAID, SELFPAY ==
--- NOTE | 2022-09-17 09:22 | DIAB.GDFU ---
Follow-up Gestational Diabetes Assessment Name: Sandra Pennington Date: 09/17/22 Time: 9:30am Dx: Gestational Diabetes Provider: Rj HARSH: 11/01/22 Weeks: 33+1w, pt to get induced at 37w, has visit with OB next week to set date. Diet Recall: Pt has been incorporating more carbs into meals, averaging 45g per meal without elevated post-prandial blood sugars. Pt very happy she tested her tolerance, continues to watch PO intake to ensure nutritive and high protein and not going over carbs. Pt feels confident she can continue to manage GDM with Metformin therapy. Anthropometrics: Wt: 236# Physical Activity: continues modified bed rest Self-Monitoring Blood Glucose: one at 95 but missed metformin dose others 79-88 average over the past 2w. 1h PP 101-128. Date Pre Post Pre Post Pre Post HS Diabetes Medications: 850mg Metformin Pertinent Labs: Nutrition Rx: Carbohydrates: Daily: Meal: 45-g lunch and dinner; 30g breakfast Snack: 15-30g Nutrition Diagnosis: Altered nutrition related lab value r/t GDM dx aeb recent OGTT Intervention: This participant was very receptive. Provided appropriate educational handouts. Discussed the following topics: Recent blood sugar results and impact of food and hormones Review of macronutrient recommendations during Benefits, resources, and nutrition for recommendations for nutrition and physical activity recommendations for T2DM risk reduction OGTT at 6-12 weeks Checking blood sugars twice per week (goal: fasting <100 mg/dL and 2 hour pc <140 mg/dL) until 6 week check-up HgA1c q 1-3 years. Goals: Pt to continue GDM interventions. Follow-up: prn if BGs change Dacia Majano RDN Clinical Dietitian T: [phone] F: [phone] Thank you for this referral
== END ==
PROVIDERS: Family Provider Family Medicine; PCP Family Medicine; Referring Provider Obstetrics & Gynecology; Visit Provider Obstetrics & Gynecology
DX: O24.415 Gestational diabetes mellitus in pregnancy, controlled by oral hypoglycemic drugs (principal); Z3A.33 33 weeks gestation of pregnancy; Z71.3 Dietary counseling and surveillance
CPT/HCPCS: 97803

== ENCOUNTER → 2022-10-06 08:45 | Outpatient (CLI) | payer OTHER, MEDICAID, SELFPAY ==
[2022-10-07 12:23] LABS: Strep Grp B PCR POS for Grp B Strep
== END ==
PROVIDERS: Family Provider Family Medicine; PCP Family Medicine; Visit Provider Obstetrics & Gynecology
DX: Z34.83 Encounter for supervision of other normal pregnancy, third trimester (principal); Z3A.36 36 weeks gestation of pregnancy
CPT/HCPCS: 87653

== ENCOUNTER 2022-10-06 09:00 | Outpatient (CLI) | payer OTHER, MEDICAID, SELFPAY | END 2022-10-06 10:05 | disposition home or self-care (01) | LOC: LABOR 09:14 → OB 10-07 12:46 | PROVIDERS: Family Provider Family Medicine; PCP Family Medicine; Referring Provider Obstetrics & Gynecology; Visit Provider Obstetrics & Gynecology | DX: O47.03 False labor before 37 completed weeks of gestation, third trimester (principal); O09.523 Supervision of elderly multigravida, third trimester; O24.419 Gestational diabetes mellitus in pregnancy, unspecified control; Z3A.36 36 weeks gestation of pregnancy; Z34.83 Encounter for supervision of other normal pregnancy, third trimester | CPT/HCPCS: 59025; 87653; G0378; G0379 ==

== ENCOUNTER 2022-10-13 08:44 | Outpatient (CLI) | payer OTHER, MEDICAID, SELFPAY | END 2022-10-13 09:45 | disposition home or self-care (01) | LOC: LABOR 09:42 → OB 10-14 12:21 | PROVIDERS: Family Provider Family Medicine; PCP Family Medicine; Referring Provider Obstetrics & Gynecology; Visit Provider Obstetrics & Gynecology | DX: O09.523 Supervision of elderly multigravida, third trimester (principal); O24.415 Gestational diabetes mellitus in pregnancy, controlled by oral hypoglycemic drugs; Z3A.37 37 weeks gestation of pregnancy | CPT/HCPCS: 59025; G0378; G0379 ==

== ENCOUNTER 2022-10-20 11:49 | Outpatient (CLI) | payer OTHER, MEDICAID, SELFPAY | END 2022-10-20 12:29 | disposition home or self-care (01) | LOC: LABOR 12:09 → OB 10-22 06:14 | PROVIDERS: Family Provider Family Medicine; PCP Family Medicine; Referring Provider Obstetrics & Gynecology; Visit Provider Obstetrics & Gynecology | DX: O24.415 Gestational diabetes mellitus in pregnancy, controlled by oral hypoglycemic drugs (principal); O09.523 Supervision of elderly multigravida, third trimester; Z3A.38 38 weeks gestation of pregnancy | CPT/HCPCS: 59025; G0378; G0379 ==

== ENCOUNTER 2022-10-22 07:25 | Inpatient (IN) | payer OTHER, MEDICAID, SELFPAY ==
--- NOTE | 2022-10-22 07:44 | P.HPOB_ITS ---
OB HPI Date/Time Date of admission: 10/22/22 Date Patient Seen: 10/22/22 History of Present Condition Chief complaint: IUP, 38+4 wks, AMA, GDMA2, +GBS for induction : 9 Para: 4 Estimated Date of Delivery: 11/01/22 Estimated Gestational Age (weeks): 38+4 Narrative: Sandra Pennington is a 37 year old admitted now at 38+ 4 weeks gestational age for induction due to gestational diabetes type A2, and advanced maternal age. Patient's course has been largely uneventful with excellent glucose control by dietary change and metformin b.i.d.. Her dating solid and milestones have been appropriate throughout. GBS is positive. Indications Indication for induction OB: gestational diabetes and other (Advanced maternal age) History of Present care: good care Dating criteria: LMP confirmed by 1st trimester US Ultrasounds: normal 1st trimester US and normal mid trimester US Obstetrical complications: gestational diabetes Preadmission Labs Blood type: B (-) negative -: Antibody screen: negative, GBS status: positive, HBsAG: negative, HIV: negative and RPR/VDLR: negative -: Chlamydia screen: not detected and Gonorrhea screen: not detected -: Rubella: immune and Varicella: immune HCT: 36.8 HCAB: negative PAP: Normal Quad screen: Normal (AFP testing negative) Cell-free DNA: Low risk female 1 hr GTT: 176 3 hr GTT: 1 hr (176), 2 hr (165) and 3 hr (153) Fasting blood glucose: 83 Prior (ies) History: x 4 Evaluation Evaluation Baseline heart rate: 125 Variability: Moderate (11-25) monitor accelerations: Present Monitor Decelerations: Absent Contraction Frequency (minutes): 10 Uterine Contraction Intensity: Mild Category of Tracing: Reactive Status: Category l Dilation (cm): 2 Effacement (%): 80 Dilation: 1-2 cm Effacement: >/=80% station: -2 Position of cervix: posterior Consistency: soft Tan score: 7 PFSH Medical History (Updated 10/13/22 @ 08:32 by Aaron De La Rosa MD) COVID-19 virus infection (02/2021) Hidradenitis suppurativa Missed depression Sinusitis Subcutaneous mass of back Surgical History (Updated 05/19/22 @ 19:13 by Kirsten Savage) Anesthesia H/O tooth extraction S/P excision of lipoma (08/04/21) Trigger finger (~11/10/21) [place] teeth extracted Family History (Updated 05/19/22 @ 19:13 by Kirsten Savage) Mother Hypertension Diabetes mellitus Mental health problem Social History marital status: unmarried,living together number of children: 4 household members: significant other and children lives independently: Yes housing: house pets and animals: Yes (1 cat, aware of toxo, kids manage litter box) education level: high school (11th grade) occupational status: employed current occupational exposures/hazards: Yes special juan needs: No seatbelt use: always water heater temp set < 120 deg: Yes working smoke detector in home: Yes fire extinguisher in home: Yes carbon monox detector in home: Yes firearms in home: No do you feel safe at home: Yes Smoking Status: Former smoker Tobacco: How many years used: 20 second hand exposure: No alcohol intake: current substance use type: marijuana (in the past, not recently) during the past year weight has: decreased > 10 lbs well-balanced diet: daily or most days daily servings fruits/ve-4 caffeine: No Type(s) of exercise: walking and other (hiking) frequency: daily additional social history: Pt reports no changes from previous , te lephone intake only last completed ~5 months ago and as an experienced mother pt denies a need to repeat this intake. Meds Home Medications and Allergies Home Medications Medication Instructions Recorded Confirmed Type prenat.vits,daryl,ahz-ilmv-herus 1 tab PO DAILY 09/14/21 10/22/22 History metformin 850 mg tablet 850 mg PO BIDWMEAL #60 tabs 04/21/22 10/22/22 Rx sumatriptan succinate 50 mg tablet See Rx Instructions PO .COMPLEX 04/21/22 10/22/22 Rx (Imitrex) #20 tabs methylprednisolone 4 mg tablets in 4 mg PO DAILY #21 ea 07/15/22 10/22/22 Rx a dose pack (Medrol ([place])) nifedipine 30 mg tablet,extended 30 mg PO BID #60 tabs 08/02/22 10/22/22 Rx release blood sugar diagnostic (Blood #100 strips 08/11/22 10/13/22 Rx Glucose Test strips) blood-glucose meter (Blood Glucose #1 ea 08/11/22 10/13/22 Rx Monitoring kit) lancets (Comfort Lancets) #100 ea 08/11/22 10/13/22 Rx Allergies Allergy/AdvReac Type Severity Reaction Status Date / Time ketorolac [From Toradol] Allergy Intermediate Hives Verified 10/22/22 10:03 tramadol Allergy Intermediate Hives Verified 10/22/22 10:03 Review of Systems Review of Systems Narrative: Problem-specific ROS positives included in HPI OB Exam Vital signs Blood Pressure: 110/54 Pulse Rate: 91 Temperature: 96.4 F HENMT Head: normal to inspection, normocephalic and atraumatic Eyes General: appearance normal, both eyes and all related structures Resp Effort & Inspection: normal respiratory effort and able to speak in complete sentences Auscultation: clear to auscultation bilaterally Cardio Rate: regular rate Rhythm: regular rhythm Heart Sounds: S1 normal, S2 normal and no murmurs Extremities Lower extremity: Yes normal to inspection GI Inspection: normal to inspection Palpation: Yes soft and Yes no hepatosplenomegaly Uterus Location (Fundal Height): 38 Presentation: vertex (Vertex to the right, back down, easily verted to vertex presentation) Estimated Weight (lbs): 8 Objective Labs 10/22/22 08:00 Assessment and Plan Assessment and Plan Assessment and Plan narrative: ASSESSMENT 1. Intrauterine , 38+4 wks EGA 2. Advanced maternal age 3. Gestational diabetes, type A2 4. GBS positive status PLAN 1. Admit for induction 2. See admission orders
[2022-10-22 08:17] LABS: Add Manual Diff / Slide Review NO; Basophils Absolute Auto 100 /uL (0-100); Basophils Percent Auto 0.9 % (0-2); Eosinophils Absolute Auto 200 /uL (0-450); Eosinophils Percent Auto 1.7 % (2-4); Hematocrit 36.8 % (36-46); Hemoglobin 12.7 g/dL (12.0-16.0); Lymphocytes Absolute Auto 2500 /uL (1100-4500); Mean Corpuscular HGB Conc 34.6 % (30-36); Mean Corpuscular Hemoglobin 30.4 PG (26-34); Mean Corpuscular Volume 87.9 fL (80-100); Monocytes Absolute Auto 1000 /uL (0-900); Neutrophils Absolute Auto 6200 /uL (1500-7000); Neutrophils Percent Auto 62.4 % (50-75); Platelet Count 190 X10^3/uL (150-400); Red Blood Cell Count 4.18 X10^6/uL (4.0-5.2); Red Cell Distribution Width 13.3 % (11.6-14.8); White Blood Cell Count 9.9 X10^3/uL (4.5-11.0)
[2022-10-22] MEDS: AMPICILLIN 2,000 MG in SODIUM CHLORIDE 0.9% 100 ML 200 MG IV (08:49)
[2022-10-22] MEDS: LACTATED RINGERS 1,000 ML 100 ML IV ×2 (08:50→15:01)
[2022-10-22] MEDS: OXYTOCIN PREMIX 30 UNIT/500 ML PLAST..BAG IV (09:32)
[2022-10-22 10:00] VITALS: BP 110/54
[2022-10-22 10:49] VITALS: BP 110/54; PULSE 91; TEMP 35.8
[2022-10-22] MEDS: TERBUTALINE 1 MG/ML VIAL 0.25 MG SUBCUT (12:54)
[2022-10-22] MEDS: AMPICILLIN 1,000 MG in SODIUM CHLORIDE 0.9% 100 ML 200 MG IV ×3 (13:13→21:43)
--- NOTE | 2022-10-22 13:14 | PM.OBPNLAB ---
Date/Time Date Patient Seen: 10/22/22 Time Patient Seen: 13:14 Pain Control Pain control: tolerating well Pelvic Exam Dilation (cm): 2 Effacement (%): 80 station: -3 Amniotic membrane status: Intact Comments: has shifted to oblique lie but vertex easily guided back to vertex after discontinuing pitocin and giving a single dose of terbutaline .25 mg SQ. Will resume pitocin and recheck in 1 hour to be sure in venkata remains in vertex presentation. Contractions Contractions on admission: none Pitocin rate (mU/min): 2 Contraction frequency (min): 6 Contraction duration (min): 1 Contraction pattern: Irregular Contraction intensity: Mild Status status: Category l Heart Rate Baseline: 125 Monitor Accelerations: Present Monitor Decelerations: Absent Monitor Variability: Moderate Assessment and Plan Assessment: induction ongoing Comments: Will reposition patient to reduce chance of reversion to oblique lie, restart Pitocin, and closely recheck for persistent vertex presentation.
--- NOTE | 2022-10-22 14:30 | PM.OBPNLAB ---
Date/Time Date Patient Seen: 10/22/22 Time Patient Seen: 14:00 Pain Control Pain control: tolerating well Pelvic Exam Dilation (cm): 2 Effacement (%): 80 station: -2 Amniotic membrane status: Ruptured (AROM 1405, clear fluid) Contractions Contractions on admission: irregular Monitor mode: External Pitocin rate (mU/min): 3 Contraction frequency (min): 6 Contraction duration (min): 1 Contraction pattern: Irregular Contraction intensity: Mild Status status: Category l Heart Rate Baseline: 125 Monitor Accelerations: Present Monitor Decelerations: Absent Monitor Variability: Moderate Assessment and Plan Assessment: induction ongoing Plan: continuous present management Comments: OK for MIR, anticipate
--- NOTE | 2022-10-22 20:48 | PM.PROC.1 ---
Procedures Date/Time Date of procedure: 10/22/22 Time of procedure: 20:38 General Procedure description: OC OB requested IUPC placement by CNM. FHR baseline 120bpm with recurrent variable decelerations x 30 minutes despite position changes. Contractions Q 1.5-2 minutes, lasting 1 minute, rated strong by patient. Inadequate epidural anesthesia on patient's right side, working with anesthia to improve coverage. Pitocin @ 14mu/min. IUPC placement explained and verbal consent obtained. IUPC placed without difficulty by CNM and connected by RN. notified by charge account identification clerk.
--- NOTE | 2022-10-22 22:53 | PM.OBPNLAB ---
Date/Time Date Patient Seen: 10/22/22 Time Patient Seen: 22:54 Pain Control Pain control: epidural (Patient not comfortable even after epidural replaced) Pelvic Exam Dilation (cm): 3 Effacement (%): 80 station: -2 Amniotic membrane status: Ruptured (AROM 1405, clear fluid) Contractions Monitor mode: External Pitocin rate (mU/min): 0 Contraction frequency (min): 3 Contraction duration (min): 1 Contraction pattern: Irregular Contraction intensity: Strong/Firm Status status: Category l Heart Rate Baseline: 135 Monitor Accelerations: Present Monitor Decelerations: Variable Monitor Variability: Moderate Assessment and Plan Assessment: induction ongoing Plan: Comments: Assessment: 37-year-old 9 para 4 with slow progression into active labor intolerance of labor Unable to get patient comfortable with epidural Plan: Primary section The risks, benefits, and alternatives to the procedure were explained to the patient. The risks including bleeding, infection, injury to the bowel, bladder, or ureters. She understands these risks and agrees to proceed. A full par Q was held and consent form was signed.
--- NOTE | 2022-10-22 22:56 | PM.PREOP ---
Pre-operative Note COVID-19 Criteria for continued procedure: Non-surgical alternatives not available or appropriate per current SOC Interval Note History & Physical reviewed/Exam performed by Physician: Yes Changes to H&P: No H&P completed within 30 days and has changed as indicated here:: 10/22/22
--- NOTE | 2022-10-22 23:39 | SUR.OPER ---
Supine on Padded OR bed, head on pillow, safety belt at thigh, arms secured on padded arm boards at <90 degrees abduction. Bump under right buttock. Legs uncrossed with pillow under knees, gel pad to heels, tape over blanket to lower legs.
[2022-10-23] VITALS (7 sets, daily range): BP systolic 90–102; BP diastolic 51–57; PULSE 78–94; RESP 12–15; TEMP 36.1–36.6; O2SAT 94–96
--- NOTE | 2022-10-23 00:26 | SUR.OPER ---
LIVE BABY GIRL TOB @0000 10/23. PLACENTA AND CORD BLOOD WITH OB RN. BABY AND DAD TAKEN TO L&D
--- NOTE | 2022-10-23 00:46 | P.OP_ITS ---
Operative Date/Time/Diagnoses Date of procedure: 10/23/22 Time of procedure: 00:46 Pre-op diagnosis: Thirty-eight and 2 sevenths weeks gestation Gestational diabetes Nonreassuring heart rate tracing Unstable lie Post-op diagnosis: same Procedure & Clinicians Procedure: Primary low-transverse section Same procedure as scheduled: Yes Indications: Multipara induced this morning due to gestational diabetes on medication. Baby found to be in the transverse lie. She was verted x2 throughout the labor. Slow progression into active labor. Began having recurrent deeper variable decelerations. Epidural was placed but unable to get patient comfortable with the epidural even after replacement. Surgeon: Apolonia Hoyos Click Yes if Unassisted: No Application Penetration Tester: aKmryn Ackerman Reason for Application Penetration Tester: The assistant designer was necessary to retract upon entry into the abdomen and uterus. She assisted with delivery of the infant with fundal pressure. She assisted with closure with retraction, clipping of suture, and closure of the contralateral fascia. Anesthesia Type: Spinal (With Duramorph) Operative Notes Findings: Live female infant in the direct occiput posterior presentation Tight nuchal cord x2 Normal uterus, tubes, and ovaries Significant hidradenitis suppurativa of the mons pubis, vulva, and lower abdomen Closure Type: primary Specimen(s): cord blood and placenta Intraoperative meds administered: Acetaminophen, Duramorph and Pitocin Applied: Catheter (To continuous drainage) Estimated Blood Loss (mL): 600 Blood products transfused: none Procedure in detail: The patient was taken to the operating room where she was placed in the seated position. After spinal anesthesia with Duramorph was administered she was placed in the dorsal supine position with a leftward tilt, and prepped and draped in the usual sterile fashion. A time-out was performed. After spinal anesthesia was found to be adequate, a Pfannenstiel skin incision was made higher than normal due to the hidradenitis suppurativa. This incision was carried through to the underlying layer of fascia. The fascia was nicked in the midline and the incision extended bilaterally with the Cruz scissors. The superior aspect of the fascial incision was grasped with the Smith clamps, elevated, and the underlying rectus muscles dissected off sharply and bluntly. Attention was then turned to the inferior aspect of this incision where the fascia was grasped, elevated, and the underlying rectus muscles were dissected off sharply and bluntly. The rectus muscles were in the midline. The peritoneum was identified, grasped between 2 hemostats, and entered sharply with the Metzenbaum scissors this incision was extended bluntly. A bladder blade was inserted. The vesicouterine peritoneum was identified, grasped with a pickup, and entered sharply with the Metzenbaum scissors. This incision was extended bilaterally, and the bladder flap created digitally. The bladder blade was reinserted. The lower uterine segment was incised in a transverse fashion with the scalpel. Upon entering the amniotic sac cord could be visualized. The infant was found to be in the direct occiput posterior presentation. The head was delivered without difficulty. A tight double nuchal cord was reduced. The remainder of the body delivered without difficulty. The cord was double clamped and cut after 1 minute. Cord bloods were obtained. Pitocin was given in the IV fluids. The placenta was delivered by expression. The uterus was cleared of all clots and debris. The uterine incision was closed with 1-0 Chromic in a running interlocking fashion, and a second layer of the same suture was used for an imbricating layer. Hemostasis was achieved. The bladder flap was reapproximated using 2-0 Vicryl in a running fashion. The gutters were cleared of all clots and debris. The tubes and ovaries were examined and were found to be normal. The parietal peritoneum was closed with 2-0 Vicryl in a running fashion. The fascia was reapproximated using 0 Vicryl in a running fashion. Hemostasis was achieved in the subcutaneous layer using the Bovie. The subcutaneous layer was irrigated with warm normal saline. Six simple interrupted sutures with 3-0 Vicryl were placed to reapproximate the subcutaneous layer. The skin was closed with 4-0 Monocryl in a subcuticular fashion. Steri-Strips and an Aquacel dressing were placed. There was an area off to the right and below the Pfannenstiel incision that was oozy of some puru lent material. This was avoided during the procedure. The uterus was expressed of a small amount of old blood. Sponge, lap, and instrument counts were correct x2. The patient tolerated the procedure well, and was taken to PACU in stable condition. Complications: none [place] Baby 1: Infant Gender: Female Presentation: vertex Position: Occiput Posterior Placental Delivery Description: Expressed Cord Vessel Description: 3 Vessels, Nuchal Cord (x 2), Tight and Reduced score (1 min): 8 score (5 min): 9 weight: 7 lb 2.5 oz Post-operative Condition: stable Disposition: PACU Aftercare: routine postop
[2022-10-23] MEDS: OXYCODONE IR 5 MG TABLET PO ×4 (04:45→22:31)
[2022-10-23] MEDS: ACETAMINOPHEN 325 MG TABLET 650 MG PO ×3 (04:51→18:37)
[2022-10-23] MEDS: DOCUSATE 100 MG CAPSULE PO (09:09)
[2022-10-23] MEDS: IBUPROFEN 600 MG TABLET PO ×3 (09:09→22:32)
[2022-10-23] MEDS: PRENATAL VIT,CALC/IRON/FOLIC 1 TABLET 1 TAB PO (09:09)
[2022-10-23 10:09] LABS: Add Manual Diff / Slide Review NO; Basophils Absolute Auto 0 /uL (0-100); Basophils Percent Auto 0.3 % (0-2); Eosinophils Absolute Auto 100 /uL (0-450); Eosinophils Percent Auto 0.5 % (2-4); Hematocrit 28.8 % (36-46); Hemoglobin 9.9 g/dL (12.0-16.0); Lymphocytes Absolute Auto 2400 /uL (1100-4500); Lymphocytes Percent Auto 18.6 % (25-40); Mean Corpuscular HGB Conc 34.5 % (30-36); Mean Corpuscular Hemoglobin 30.6 PG (26-34); Mean Corpuscular Volume 88.7 fL (80-100); Monocytes Absolute Auto 900 /uL (0-900); Monocytes Percent Auto 6.7 % (3-14); Neutrophils Absolute Auto 9600 /uL (1500-7000); Neutrophils Percent Auto 73.9 % (50-75); Platelet Count 163 X10^3/uL (150-400); Red Blood Cell Count 3.25 X10^6/uL (4.0-5.2); Red Cell Distribution Width 13.3 % (11.6-14.8)
[2022-10-23] MEDS: OXYCODONE IR 10 MG TABLET PO (12:30)
[2022-10-24] MEDS: OXYCODONE IR 10 MG TABLET PO ×5 (03:23→20:44)
[2022-10-24] MEDS: ACETAMINOPHEN 325 MG TABLET 650 MG PO ×4 (03:23→20:43)
[2022-10-24] MEDS: IBUPROFEN 600 MG TABLET PO ×3 (07:46→18:47)
[2022-10-24] MEDS: PRENATAL VIT,CALC/IRON/FOLIC 1 TABLET 1 TAB PO (07:47)
[2022-10-24] MEDS: DOCUSATE 100 MG CAPSULE PO (07:47)
--- NOTE | 2022-10-24 13:32 | PM.OBPN.1 ---
Subjective - OB Subjective Patient comments: incisional pain, tolerating diet and flatus present baby status: doing well and nursing well feeding status: exclusively breast feeding Date Patient Seen: 10/23/22 Time Patient Seen: 13:00 Interval history: Postop day # 1 status post emergent primary low-transverse section. Patient doing well. Pain is fairly well controlled. Lance catheter still in place. Tolerating a diet. going well. Exam Vital Signs (past 8 hours): Oxygen Delivery Method Room Air Narrative Exam Narrative: Generally: Patient is sitting up in bed, no acute distress Lungs: Clear to auscultation bilaterally Cardiovascular: Regular rate and rhythm Fundus: Firm at U -1 Incision: Clean dry and intact with Aquacel dressing Extremities: Trace edema, negative Homans Objective Labs 10/23/22 10:05 Assessment & Plan Plan day: 1 plan OB: routine postop care Time Spent With Patient Time: Total time spent is greater than 50% in coordination of care (as documented) at patient's floor/unit and/or counseling patient: Time with patient: less than 15 minutes
--- NOTE | 2022-10-24 13:34 | PM.OBPN.1 ---
Subjective - OB Subjective Patient comments: no complaints, incisional pain (With movement), tolerating diet and flatus present [place] baby status: doing well and nursing well feeding status: exclusively breast feeding Date Patient Seen: 10/24/22 Time Patient Seen: 13:34 Interval history: Postop day # 2 status post emergent low-transverse section. Patient's catheter was removed this morning. She has voided without difficulty. She does have some pain upon rising from the bed. Exam Vital Signs (past 8 hours): Oxygen Delivery Method Room Air Narrative Exam Narrative: Generally: Patient is sitting up in bed, no acute distress Lungs: Clear to auscultation bilaterally Cardiovascular: Regular rate and rhythm Fundus: Firm at U -1 Incision: Clean dry and intact with Aquacel dressing Extremities: Trace edema, negative Homans Objective Labs 10/23/22 10:05 Assessment & Plan Plan day: 2 plan OB: routine postop care Comments: Will ambulate today Will decrease pain meds Anticipate discharge tomorrow Time Spent With Patient Time: Total time spent is greater than 50% in coordination of care (as documented) at patient's floor/unit and/or counseling patient: Time with patient: 15-24 minutes
[2022-10-25] MEDS: IBUPROFEN 600 MG TABLET PO ×2 (00:40→06:31)
[2022-10-25] MEDS: OXYCODONE IR 10 MG TABLET PO ×4 (00:40→15:00)
[2022-10-25] MEDS: ACETAMINOPHEN 325 MG TABLET 650 MG PO ×2 (04:12→10:51)
[2022-10-25] MEDS: PRENATAL VIT,CALC/IRON/FOLIC 1 TABLET 1 TAB PO (08:00)
[2022-10-25] MEDS: LANOLIN OINT 7 GM 1 APPLIC TOP (08:00)
[2022-10-25] MEDS: DOCUSATE 100 MG CAPSULE PO (08:00)
--- NOTE | 2022-10-25 09:27 | PM.EVENT ---
Event Note Date Patient Seen: 10/25/22 Time Patient Seen: 09:28 Event Note (Rapid Response, Code, or fall): Patient is a 37-year-old 9 para 5 postop day # 2 status post a primary section who was discharged this morning. We were called to room because patient was on the toilet and not feeling well. Got her back to bed and she passed out upon sitting on the bed. Her pulse ox dropped to the 80s. With oxygen came back up to the 90s. Pulse in the 90s. Blood pressure 120s over 70s. EKG ordered, CBC and CMP ordered. Oxygen placed. CT angio ordered. EKG showed normal sinus tachycardia. CMP was normal. Hematocrit 30. CT scan showed bilateral pulmonary emboli. Hospitalist consulted. Patient to be transferred to acute care and started on IV anticoagulation.
--- NOTE | 2022-10-25 09:35 | DI.CT.S_ITS ---
PROCEDURE: CT ANGIO CHEST INDICATIONS: Chest pain, shortness of breath. Recent . TECHNIQUE: After the administration of intravenous contrast, 2 mm thick sections acquired from the pulmonary apices to the posterior costophrenic angles. 3-dimensional maximum intensity projection (MIP) coronal and sagittal reformats were then acquired through the thorax. For radiation dose reduction, the following was used: automated exposure control, adjustment of mA and/or kV according to patient size. COMPARISON: None. FINDINGS: Image quality: There is streak artifact seen through the upper abdomen. Pulmonary arteries: Bilateral pulmonary emboli can be seen. There is a proximal pulmonary embolism seen at the branch point between the right middle lobe and the right lower lobe pulmonary arteries. Several pulmonary emboli can be seen within the right lower lobe. Proximal right upper lobe pulmonary emboli can be seen. Left sided pulmonary emboli can be seen, including a pulmonary embolism at the branch point between the left upper lobe and left lower lobe pulmonary arteries. Several left lower lobe pulmonary emboli can be seen. The lumbar is are mildly enlarged, with the main pulmonary trunk measuring 3.2 cm. Lungs and pleura: Lungs are clear. No pleural effusions or pneumothorax. Central and peripheral airways are patent. Mediastinum: The right heart is larger than left. No pericardial effusion. No mediastinal or hilar adenopathy. Thoracic aorta is normal in caliber and enhancement. Esophagus is normal in caliber, without hiatal hernia. Bones and chest wall: No suspicious bony lesions. Ribs and thoracic spine appear intact throughout. Thyroid gland demonstrates no significant abnormality. No axillary or supraclavicular adenopathy. Abdomen: An enlarged liver is seen. Accessory splenules can be seen along the hilum of the spleen. The visualized portions of the upper abdominal structures are otherwise unremarkable for imaging technique. IMPRESSION: Extensive burden of bilateral pulmonary embolism, right worse than left. The right heart is larger than the left, which is suspicious for heart strain. Additional findings: Hepatomegaly Accessory splenules Note: Case discussed by telephone with Dr. Hoyos at 9:18 a.m. [place] time on October 25, 2022. Dictated by: Martin Rodriguez M.D. on 10/25/2022 at 9:13 Approved by: Martin Rodriguez M.D. on 10/25/2022 at 9:21
[2022-10-25 09:48] LABS: Add Manual Diff / Slide Review NO; Basophils Absolute Auto 100 /uL (0-100); Basophils Percent Auto 0.5 % (0-2); Eosinophils Absolute Auto 400 /uL (0-450); Eosinophils Percent Auto 3.4 % (2-4); Hematocrit 30.3 % (36-46); Hemoglobin 10.3 g/dL (12.0-16.0); Lymphocytes Absolute Auto 4400 /uL (1100-4500); Lymphocytes Percent Auto 42.1 % (25-40); Mean Corpuscular Hemoglobin 30.8 PG (26-34); Mean Corpuscular Volume 90.5 fL (80-100); Monocytes Absolute Auto 900 /uL (0-900); Monocytes Percent Auto 8.3 % (3-14); Neutrophils Absolute Auto 4800 /uL (1500-7000); Neutrophils Percent Auto 45.7 % (50-75); Platelet Count 189 X10^3/uL (150-400); Red Blood Cell Count 3.34 X10^6/uL (4.0-5.2); Red Cell Distribution Width 13.6 % (11.6-14.8); White Blood Cell Count 10.6 X10^3/uL (4.5-11.0)
[2022-10-25 10:08] LABS: Alanine Aminotransferase 17 IU/L (<35); Albumin Globulin Ratio 0.8 (1.0-2.8); Alkaline Phosphatase 85 U/L (38-126); Aspartate Aminotransferase 21 IU/L (14-36); BUN Creatinine Ratio 10.3 (6-22); Bilirubin Total 0.1 mg/dL (0.2-1.3); Blood Urea Nitrogen 6 mg/dL (7-17); Calcium 8.6 mg/dL (8.4-10.2); Carbon Dioxide 23 mmol/L (22-32); Chloride 109 mmol/L (98-107); Estimated Glomerular Filt Rate > 60 mL/min (>60); Globulin 3.7 g/dL (1.7-4.1); Glucose 101 mg/dL (70-100); HEMOLYSIS < 15 (0-50); Potassium 3.5 mmol/L (3.4-5.1); Sodium 138 mmol/L (137-145); Total Protein 6.7 g/dL (6.3-8.2)
--- NOTE | 2022-10-25 10:36 | DI.ECHO.S_ITS ---
[place] [facility] +---------+ : : [address] : : : : [id number] : : : : Phone: [phone]+ Echocardiogram Report + + :Name: AUDREY ALONZO Study Date: 10/25/2022 Height: 66 in : :[facility] ReadingLocation: Weight: 227 lb : : Gender: Female BSA: 2.1 m2 : :: 1985 Age: 37 yrs BP: 110/83 mmHg: :Reason For Study: Bilateral Pulmonary Embolism : :Ordering Physician: ADRIAN, : :ROSIE Performed By: Shani Medina : :Referring: ROSIE CAMPBELL : + + Interpretation Summary Sinus tachycardia. Normal LV size and wall thickness. Normal wall motion and LV systolic function. LV is hyperdynamic with ejection fraction 70-75%. D-shaped LV in systole and diastole consistent with RV pressure overload. Moderate RV dilation and borderline reduced RV function. TAPSE is 1.7 Moderate central tricuspid regurgitation. Otherwise no significant valvular abnormalities. Estimated PA systolic pressure is 40 mmHg assuming right atrial pressure 8 mmHg. Procedure: A two-dimensional transthoracic echocardiogram with color flow and Doppler was performed. The study quality was technically adequate. There is no prior echocardiogram noted for this patient. The patient was in a tachycardic rhythm during the exam. Left Ventricle: The left ventricular cavity is small. The ejection fraction is estimated to be 70-75%. The interventricular septum is flattened, consistent with a right ventricular pressure/volume condition. Diastolic function could not be accurately assessed due to tachycardia. Right Ventricle: The right ventricle is moderately dilated. Right ventricular systolic function is borderline reduced. Atria: The left atrial size is normal. The right atrium is moderately dilated. There is no Doppler evidence for an interatrial shunt. Mitral Valve: The mitral valve is normal. There is no mitral valve stenosis. There is no mitral regurgitation noted. Aortic Valve: The aortic valve is trileaflet. The aortic valve opens well. There is no aortic valve stenosis. No aortic regurgitation is present. Tricuspid Valve: The tricuspid valve is normal. There is no tricuspid stenosis. There is moderate tricuspid regurgitation. The right ventricular systolic pressure is estimated to be at least 40 mmHg based on an estimated right atrial pressure of 8 mm Hg. Pulmonic Valve: The pulmonic valve leaflets are thin and pliable; valve motion is normal. There is no pulmonic valvular stenosis. There is no pulmonic valvular regurgitation. Great Vessels: The aortic root is normal size. The ascending aorta is normal in size. The pulmonary artery is normal size. The IVC is of normal diameter and collapses less than 50% with a sniff. This suggests a right atrial pressure of 8 mm Hg. Pericardium/ Pleura There is a trivial pericardial effusion noted. There is a moderately large left-sided pleural effusion. MMode/2D Measurements & Calculations LVIDd: 3.5 cm LVOT diam: 1.6 cm LVIDs: 2.1 cm Ao root diam: 2.6 cm FS: 40.0 % asc Aorta Diam: 2.8 cm IVSd: 0.80 cm LVPWd: 0.90 cm LV lynn. diameter/BSA (cm/m^2): 1.7 LV sys. diameter/BSA (cm/m^2): 0.99 LA A2 area: 10.3 cm2 RA long axis: 5.5 cm LA A4 area: 13.0 cm2 RA area: 21.7 cm2 LA length (vol): 4.4 cm RA vol: 72.8 ml LA vol: 25.7 ml RA : 34.5 ml/m2 LA vol index: 12.2 ml/m2 RVD1 (basal): 4.8 cm TAPSE_phl: 1.8 cm Doppler Measurements & Calculations Ao V2 max: 130.5 cm/sec LVOT Max Bernardo: 107.0 cm/sec Ao V2 mean: 86.6 cm/sec LV V1 max P.6 mmHg Ao max P.0 mmHg LV V1 VTI: 14.4 cm Ao mean P.5 mmHg NANCY(I,D): 1.7 cm2 Ao V2 VTI: 17.4 cm NANCY(V,D): 1.6 cm2 sev ratio: 0.83 NANCY indexed to BSA (cm^2/m^2): 0.79 TR max bernardo: 290.2 cm/sec SV(LVOT): 29.0 ml TR max P.7 mmHg AV VR_phl: 0.82 NANCY(VTI)/BSA_phl: 0.79 Electronically signed by: Rahel Daniels M.D. on Reading Physician:10/25/2022 11:45 AM
[2022-10-25] MEDS: HEPARIN 5,000 UNIT/ML VIAL 7500 UNIT IV (11:46)
[2022-10-25 11:52] VITALS: BMI 36.8
[2022-10-25] MEDS: HEPARIN DRIP 25,000 UNIT/500 ML IV.SOLN 24 UNIT IV (12:13)
[2022-10-25 12:27] VITALS: PULSE 114; O2SAT 95
[2022-10-25 12:30] VITALS: BP 107/69; PULSE 114; O2SAT 95
[2022-10-25 13:00] VITALS: BP 112/75; PULSE 111; O2SAT 95
--- NOTE | 2022-10-25 13:15 | PC.NURSE ---
Addendum entered by López Roca R.N. 10/25/22 15:16: Patient condition and assessment unchanged since admission to ICU. Family, spouse, and baby continue to be at bedside. 1415 - Report given to [place] SOIL SORT WORKER. 1500 - [place] [employer] arrived, bedside report given to marine transport professionals. Addendum entered by López Roca R.N. 10/25/22 13:28: PTT 109, not 106. Addendum entered by López Roca R.N. 10/25/22 13:27: Lab reported PTT at 106. Draw was taken late, after Heparin bolus and infusion had began. Providers aware. Original Note: Abdominal incision clean and dry, scant drainage noted. Vaginal pad has scant serosanguinous drainage. Fundus firm. Abdomen soft and tender. Will continue to monitor.
[2022-10-25 13:27] LABS: PTT Partial Thromboplastin Tim 109 SECONDS (26-36)
[2022-10-25 13:30] VITALS: BP 137/78; PULSE 114; O2SAT 96
[2022-10-25 13:41] LABS: NT-proBNP (BNP-Adult 18+) 39 pg/mL (<125); Troponin I 0.041 ng/mL (0.01-0.034)
--- NOTE | 2022-10-25 13:55 | P.CONS_ITS ---
History of Present Illness Consult details Date Patient Seen: 10/25/22 Time Patient Seen: 10:00 Chief complaint: IUP, 38+4 wks, AMA, GDMA2, +GBS for induction Narrative: Ms. Pennington is a 37W 3 days ago on 10/22 who today experienced sudden onset chest pressure, dizziness, passed out, and shortness of breath. Medicine consulted for assistance in management She has a history of multiple missed abortions in the past. Her mother has a history of VTE. She has never been worked up for clotting disorder. Yesterday she felt some palpitations, but this is not unusual for her. She notes some bilateral lower extremity swelling, equal in size, no pain in her legs. She was using the bathroom, she felt lightheaded, short of breath, and dizzy. She was placed back in bed and syncope. She was noted on vitals to have O2 sat in the 80s, placed on oxygen. Heart rate in 110s-120s. Labs notable for normal BNP, trop 0.041. CTA done which showed significant bilateral pulmonary embolism right worse than left and evidence of right heart larger than left. ECHO was ordered stat which showed small LV, flattened interventricular septum, RV moderately dilated with borderline reduced function. She was transferred from the center to the inpatient unit. He bárbara was ordered. I discussed the case with outside hospital marketing rotation associate who agreed with indication for transfer. I discussed the case with Dr. Hoyos about treatment and plan for transfer to higher level of care. Meds Home Medications and Allergies Home Medications Medication Instructions Recorded Confirmed Type prenat.vits,daryl,adw-aznx-dswfq 1 tab PO DAILY 09/14/21 10/22/22 History sumatriptan succinate 50 mg tablet See Rx Instructions PO .COMPLEX 04/21/22 10/22/22 Rx (Imitrex) #20 tabs methylprednisolone 4 mg tablets in 4 mg PO DAILY #21 ea 07/15/22 10/22/22 Rx a dose pack (Medrol ([place]ady)) blood sugar diagnostic (Blood #100 strips 08/11/22 10/13/22 Rx Glucose Test strips) blood-glucose meter (Blood Glucose #1 ea 08/11/22 10/13/22 Rx Monitoring kit) lancets (Comfort Lancets) #100 ea 08/11/22 10/13/22 Rx docusate sodium 100 mg capsule 100 mg PO BID #30 caps 10/25/22 Rx (Colace) ibuprofen 600 mg tablet 600 mg PO Q6H PRN pain #30 tabs 10/25/22 Rx oxycodone 5 mg tablet 5 mg PO Q6H PRN pain #30 tabs 10/25/22 Rx Allergies Allergy/AdvReac Type Severity Reaction Status Date / Time ketorolac [From Toradol] Allergy Intermediate Hives Verified 10/22/22 10:03 tramadol Allergy Intermediate Hives Verified 10/22/22 10:03 Review of Systems Review of Systems Narrative: 14 systems reviewed and negative aside from what is noted in HPI Exam Vital Signs (past 8 hours): - 10/25/22 12:27 10/25/22 12:30 10/25/22 12:30 Pulse Rate 114 H 114 H Blood Pressure 107/69 Pulse Oximetry 95 95 Oxygen Delivery Method 10/25/22 13:00 10/25/22 13:00 10/25/22 13:18 Pulse Rate 111 H Blood Pressure 112/75 Pulse Oximetry 95 Oxygen Delivery Method Nasal Cannula Oxygen Delivery Method Nasal Cannula Narrative Exam Narrative: GEN: anxious, in distress HEENT: moist mucous membranes, PERRL CV: tachycardic, no murmurs PULM: clear bilaterally ABD: soft, nontender, nondistended EXT: bilateral mildy symmetric swelling, no tenderness to palpation Objective Labs 10/25/22 09:38 10/25/22 09:38 Labs: Laboratory Results - last 24 hr 10/25/22 10/25/22 10/25/22 09:38 09:38 09:38 WBC 10.6 RBC 3.34 L Hgb 10.3 L Hct 30.3 L MCV 90.5 MCH 30.8 MCHC 34.0 RDW 13.6 Plt Count 189 Neut % (Auto) 45.7 L D Lymph % (Auto) 42.1 H D [place] % (Auto) 8.3 Eos % (Auto) 3.4 Baso % (Auto) 0.5 Neut # (Auto) 4800 Lymph # (Auto) 4400 [place] # (Auto) 900 Eos # (Auto) 400 Baso # (Auto) 100 APTT Sodium 138 Potassium 3.5 Chloride 109 H Carbon Dioxide 23 BUN 6 L Creatinine 0.58 Estimated GFR > 60 BUN/Creatinine Ratio 10.3 Glucose 101 H Calcium 8.6 Total Bilirubin 0.1 L AST 21 ALT 17 Alkaline Phosphatase 85 Troponin I 0.041 H NT-Pro-B Natriuret Pep 39 Total Protein 6.7 Albumin 3.0 L Globulin 3.7 Albumin/Globulin Ratio 0.8 L 10/25/22 12:45 WBC RBC Hgb Hct MCV MCH MCHC RDW Plt Count Neut % (Auto) Lymph % (Auto) [place] % (Auto) Eos % (Auto) Baso % (Auto) Neut # (Auto) Lymph # (Auto) [place] # (Auto) Eos # (Auto) Baso # (Auto) APTT 109 H* Sodium Potassium Chloride Carbon Dioxide BUN Creatinine Estimated GFR BUN/Creatinine Ratio Glucose Calcium Total Bilirubin AST ALT Alkaline Phosphatase Troponin I NT-Pro-B Natriuret Pep Total Protein Albumin Globulin Albumin/Globulin Ratio PFSH Medical History COVID-19 virus infection (02/2021) Hidradenitis suppurativa Missed depression Sinusitis Subcutaneous mass of back Surgical History Anesthesia H/O tooth extraction S/P excision of lipoma (08/04/21) Trigger finger (~11/10/21) [place] teeth extracted Family History Mother Hypertension Diabetes mellitus Mental health problem Social History marital status: unmarried,living together number of children: 4 household members: significant other and children lives independently: Yes housing: house pets and animals: Yes (1 cat, aware of toxo, kids manage litter box) education level: high school (11th grade) occupational status: employed current occupational exposures/hazards: Yes special juan needs: No Safety seatbelt use: always water heater temp set < 120 deg: Yes working smoke detector in home: Yes fire extinguisher in home: Yes carbon monox detector in home: Yes firearms in home: No do you feel safe at home: Yes Tobacco & Substance Use Smoking Status: Former smoker Tobacco: How many years used: 20 second hand exposure: No alcohol intake: current substance use type: marijuana (in the past, not recently) Diet and Exercise during the past year weight has: decreased > 10 lbs well-balanced diet: daily or most days daily servings fruits/ve-4 caffeine: No Type(s) of exercise: walking and other (hiking) frequency: daily Additional Social History additional social history: Pt reports no changes from previous , telephone intake only last completed ~5 months ago and as an experienced mother pt denies a need to repeat this intake. Assessment & Plan Assessment & Plan narrative: 1. Acute Pulmonary embolism with acute hypoxemic respiratory failure -has history of miscarriage, and family history of VTE -would need workup for possible clotting disorder -etiology may also just be peripartum setting -CTA confirms large PE with significant clot burden, ECHO shows RV dilation with also noted elevated troponin -has signs of hemodynamic compromise with tachycardia, and hypoxemia -started IV heparin -given size of clot burden and hemodynamic and cardiac effects will attempt transfer to institution that has opportunity for possible catheter directed lysis or thrombectomy -discussed plan to transfer with ob-women's lacrosse coach physician 2. from -monitor closely for bleeding I have obtained history and discussed plan with patient and family at bedside. I have discussed plan of care with ob-women's lacrosse coach physician, bedside nurse. I have reviewed labs, imaging. CODE: Full Proxy: Bakari Manrique, life partner
[2022-10-25 14:00] VITALS: BP 128/74; PULSE 115; O2SAT 97
[2022-10-25 14:30] VITALS: BP 124/80; PULSE 113; O2SAT 98
--- NOTE | 2022-10-25 14:42 | P.DS_ITS ---
History of Present Illness History of Present Illness Chief complaint: IUP, 38+4 wks, AMA, GDMA2, +GBS for induction Narrative: Ms. Pennington is a 37W 3 days ago on 10/22 who today experienced sudden onset chest pressure, dizziness, passed out, and shortness of breath. Medicine consulted for assistance in management She has a history of multiple miscarriages in the past. Her mother has a history of VTE. She has never been worked up for clotting disorder. Yesterday she felt some palpitations, but this is not unusual for her. She notes some bilateral lower extremity swelling, equal in size, no pain in her legs. She was using the bathroom, she felt lightheaded, short of breath, and dizzy. She was placed back in bed and syncope. She was noted on vitals to have O2 sat in the 80s, placed on oxygen. Heart rate in 110s- 120s. Labs notable for normal BNP, trop 0.041. CTA done which showed significant bilateral pulmonary embolism right worse than left and evidence of right heart larger than left. ECHO was ordered stat which showed small LV, flattened interventricular septum, RV moderately dilated with borderline reduced function. She was transferred from the center to the inpatient unit. Heparin was ordered. I discussed the case with outside hospital bridge painter helper who agreed with indication for transfer. I discussed the case with Dr. Hoyos about treatment and plan for transfer to higher level of care. Discharge Providers Provider Date of admission: 10/22/22 07:25 Discharge Date: 10/25/22 Primary care physician: Joseph Garcia MD Consults: 10/22/22 07:33 Consult to Anesthesiology Urgent Comment: Consulting Provider: Aaron De La Rosa Reason for consultation: Epidural Has provider been notified: No 10/23/22 02:03 Consult to Sewing Techniques Demonstrator Routine Comment: 10/25/22 11:37 Consult to Tele-superintendent pipelines Routine Comment: Consulting Provider: Noa Tele-intensivists Reason for consultation: Animal Biologist services Has provider been notified: Yes Discharge provider: Enrique Magdaleno MD Summary Hospital Course Discharge Diagnosis: 1. Acute pulmonary embolism 2. Acute hypoxemic respiratory failure 3. , s/p , 4. Hidradenitis suppurtiva 5. Gestational diabetes 6. Former smoker Hospital Course: Ms. Pennington was trasnferred from the center after being diagnosed with a pulmonary embolism. As noted she had quite significant clot burden with CTA showing clots especially on the right side of the lung. She had dilated RV, mildly reduced right ventricular dysfunction, reduced left ventricular size with intraventricular septal bowing. She had mildly elevated troponin at 0.041, with upper end of normal being 0.03 at this institution. She was started on IV heparin. Discussion of case was had with superintendent pipelines at [facility], Dr. Kamara, who accepted the patient to evaluate for possible additional therapies for the pulmonary embolism. Of note she has a history of hidradenitis suppurtiva and her incision should be closely watched per her primary team. She may benefit from workup for clotting disorder. Exam Vital Signs (past 8 hours): - 10/25/22 12:27 10/25/22 12:30 10/25/22 12:30 Pulse Rate 114 H 114 H Blood Pressure 107/69 Pulse Oximetry 95 95 Oxygen Delivery Method 10/25/22 13:00 10/25/22 13:00 10/25/22 13:18 Pulse Rate 111 H Blood Pressure 112/75 Pulse Oximetry 95 Oxygen Delivery Method Nasal Cannula 10/25/22 13:30 10/25/22 13:30 10/25/22 14:00 Pulse Rate 114 H Blood Pressure 137/78 128/74 Pulse Oximetry 96 Oxygen Delivery Method 10/25/22 14:00 10/25/22 14:30 10/25/22 14:30 Pulse Rate 115 H 113 H Blood Pressure 124/80 Pulse Oximetry 97 98 Oxygen Delivery Method Oxygen Delivery Method Nasal Cannula Narrative Exam Narrative: GEN: appears more comfortable HEENT: moist mucous membranes, PERRL CV: tachycardic, no murmurs PULM: clear bilaterally ABD: soft, nontender, nondistended EXT: bilateral mildy symmetric swelling, no tenderness to palpation Objective Labs 10/25/22 09:38 10/25/22 09:38 Labs: Laboratory Results - last 24 hr 10/25/22 10/25/22 10/25/22 09:38 09:38 09:38 WBC 10.6 RBC 3.34 L Hgb 10.3 L Hct 30.3 L MCV 90.5 MCH 30.8 MCHC 34.0 RDW 13.6 Plt Count 189 Neut % (Auto) 45.7 L D Lymph % (Auto) 42.1 H D [place] % (Auto) 8.3 Eos % (Auto) 3.4 Baso % (Auto) 0.5 Neut # (Auto) 4800 Lymph # (Auto) 4400 [place] # (Auto) 900 Eos # (Auto) 400 Baso # (Auto) 100 APTT Sodium 138 Potassium 3.5 Chloride 109 H Carbon Dioxide 23 BUN 6 L Creatinine 0.58 Estimated GFR > 60 BUN/Creatinine Ratio 10.3 Glucose 101 H Calcium 8.6 Total Bilirubin 0.1 L AST 21 ALT 17 Alkaline Phosphatase 85 Troponin I 0.041 H NT-Pro-B Natriuret Pep 39 Total Protein 6.7 Albumin 3.0 L Globulin 3.7 Albumin/Globulin Ratio 0.8 L 10/25/22 12:45 WBC RBC Hgb Hct MCV MCH MCHC RDW Plt Count Neut % (Auto) Lymph % (Auto) [place] % (Auto) Eos % (Auto) Baso % (Auto) Neut # (Auto) Lymph # (Auto) [place] # (Auto) Eos # (Auto) Baso # (Auto) APTT 109 H* Sodium Potassium Chloride Carbon Dioxide BUN Creatinine Estimated GFR BUN/Creatinine Ratio Glucose Calcium Total Bilirubin AST ALT Alkaline Phosphatase Troponin I NT-Pro-B Natriuret Pep Total Protein Albumin Globulin Albumin/Globulin Ratio [facility] Medical History COVID-19 virus infection (02/2021) Hidradenitis suppurativa Missed depression Sinusitis Subcutaneous mass of back Surgical History Anesthesia H/O tooth extraction S/P excision of lipoma (08/04/21) Trigger finger (~11/10/21) [place] teeth extracted Family History Mother Hypertension Diabetes mellitus Mental health problem Social History marital status: unmarried,living together number of children: 4 household members: significant other and children lives independently: Yes housing: house pets and animals: Yes (1 cat, aware of toxo, kids manage litter box) education level: high school (11th grade) occupational status: employed current occupational exposures/hazards: Yes special juan needs: No seatbelt use: always water heater temp set < 120 deg: Yes working smoke detector in home: Yes fire extinguisher in home: Yes carbon monox detector in home: Yes firearms in home: No do you feel safe at home: Yes Smoking Status: Former smoker Tobacco: How many years used: 20 second hand exposure: No alcohol intake: current substance use type: marijuana (in the past, not recently) during the past year weight has: decreased > 10 lbs well-balanced diet: daily or most days daily servings fruits/ve-4 caffeine: No Type(s) of exercise: walking and other (hiking) frequency: daily additional social history: Pt reports no changes from previous , telephone intake only last completed ~5 months ago and as an experienced mother pt denies a need to repeat this intake. Discharge Plan Discharge Plan Patient Disposition: [facility] Other facility: [facility] Under care of provider: Dr. Kamara Provider Discharge Comment: transfer to higher level of care due to extensive PE and consideration of lysis, thrombectomy, or other intervention Diet/Activity/Treatments Diet: Regular Activity: No heavy lifting, nothing more than baby or a gal of milk Skin/Wound/Dressing Care Dressing: Do not remove Visit Report/Discharge Packet Instructions: DI for , DI for Prescription Opioid Use Discharge Data Primary Care Provider: Joseph Garcia Attending Provider: Aaron De La Rosa Admit Date/Time: 10/22/22 07:25 Quality VTE Deep Vein Thrombosis/Pulmonary Embolism Present on Admission: No
== END 2022-10-25 15:16 | disposition short-term general hospital (02) | DRG 540 ==
LOC: LABOR 10-25 09:02 → ICU 10-25 14:42 → LABOR 10-26 06:57
PROVIDERS: Internal Medicine; Obstetrics & Gynecology; Admitting Provider Obstetrics & Gynecology; Family Provider Family Medicine; PCP Family Medicine; Referring Provider Obstetrics & Gynecology; Visit Provider Obstetrics & Gynecology
PROC: (CPT 59514; principal; 2022-10-22 23:00)
DX: O24.425 Gestational diabetes mellitus in childbirth, controlled by oral hypoglycemic drugs (principal); I26.99 Other pulmonary embolism without acute cor pulmonale; J96.01 Acute respiratory failure with hypoxia; O64.8XX0 Obstructed labor due to other malposition and malpresentation, not applicable or unspecified; O76 Abnormality in fetal heart rate and rhythm complicating labor and delivery; O99.824 Streptococcus B carrier state complicating childbirth; Z3A.38 38 weeks gestation of pregnancy; Z37.0 Single live birth; O99.892 Other specified diseases and conditions complicating childbirth; L73.2 Hidradenitis suppurativa; Z87.891 Personal history of nicotine dependence
CPT/HCPCS: 36415; 59050; 59514; 71275; 76815; 80053; 83880; 84484; 85025; 85730; 86850; 86900; 86901; 93005; 93010; 93306; G0378; G0379; J0290; J1644; J2274; J2405; J2590; J3010; Q9967

== ENCOUNTER → 2022-11-02 14:26 | Outpatient (CLI) | payer OTHER, MEDICAID, SELFPAY ==
[2022-10-25 11:52] VITALS: BMI 36.8
--- NOTE | 2022-11-02 14:31 | DI.US.S_ITS ---
PROCEDURE: US PERIPH VENOUS LOW EXTREM RT INDICATIONS: RIGHT FOOT PAIN / PULM EMBOLISM TECHNIQUE: Real-time imaging, as well as color and pulse Doppler interrogation, were performed of the lower extremity deep veins from the inguinal ligament to the popliteal fossa, with documentation of the visualized calf veins. COMPARISON: [facility], CR, XR FOOT RT 2V, 11/02/2022, 14:54. [facility], US, US PERIPH VENOUS LOW EXTREM LT, 04/02/2022, 11:11. FINDINGS: The common femoral, femoral, popliteal, and the visualized calf veins are normally compressible, and free of intraluminal thrombus. Color and pulse Doppler demonstrate normal phasic intraluminal flow. There is normal augmentation response to distal compression maneuver. Note is made of venous stasis within the right common femoral vein and the right proximal femoral vein, with spontaneous contrast. IMPRESSION: No findings of lower extremity deep venous thrombosis can be seen on these images. Venous stasis can be seen. Short-term follow-up is recommended. Dictated by: Martin Rodriguez M.D. on 11/02/2022 at 14:10 Approved by: Martin Rodriguez M.D. on 11/02/2022 at 14:12
--- NOTE | 2022-11-02 14:32 | DI.RAD.S_ITS ---
PROCEDURE: XR FOOT RT 2V INDICATIONS: RIGHT FOOT PAIN TECHNIQUE: 2 views of the foot were acquired. COMPARISON: None. FINDINGS: Bones: No fractures or dislocations. No suspicious bony lesions. Soft tissues: No tibiotalar joint effusion. Achilles tendon appears normal. IMPRESSION: No osseous lesion. If symptoms and/or clinical suspicion for pathology persists, further assessment with advanced imaging (e.g. CT, MRI or bone scan) should be considered. Dictated by: Jesika Meza MD, PhD on 11/02/2022 at 15:25 Approved by: Jesika Meza MD, PhD on 11/02/2022 at 15:26
== END ==
PROVIDERS: Family Provider Family Medicine; PCP Family Medicine; Referring Provider Family Medicine; Visit Provider Family Medicine
DX: I26.99 Other pulmonary embolism without acute cor pulmonale (principal); M79.671 Pain in right foot
CPT/HCPCS: 73620; 93971

== ENCOUNTER → 2023-03-23 12:22 | Outpatient (CLI) | payer OTHER, MEDICAID, SELFPAY ==
--- NOTE | 2023-03-23 | DI.RAD.S_ITS ---
PROCEDURE: XR ELBOW RT 2V INDICATIONS: ARM PAIN TECHNIQUE: 3 views of the elbow were acquired. COMPARISON: None. FINDINGS: Bones: No fractures or dislocations. No suspicious bony lesions. Soft tissues: No elbow joint effusion. No suspicious soft tissue calcifications. IMPRESSION: No acute bony abnormality or significant joint effusion. Approved by: Anant Balderas M.D. on 03/23/2023 at 20:36
--- NOTE | 2023-03-23 | DI.RAD.S_ITS ---
PROCEDURE: XR SHOULDER RT MIN 2V INDICATIONS: ARM PAIN TECHNIQUE: 3 views of the shoulder were acquired. COMPARISON: [facility], , SHOULDER MINIMUM 2 VIEW LEFT, 08/04/2013, 14:19. FINDINGS: Bones: No fractures or dislocations. No suspicious bony lesions. Visualized ribs appear intact. Soft tissues: No suspicious soft tissue calcifications. IMPRESSION: No acute bony abnormality. Approved by: Anant Balderas M.D. on 03/23/2023 at 20:35
== END ==
PROVIDERS: Family Provider Family Medicine; PCP Family Medicine; Referring Provider Family Medicine; Visit Provider Family Medicine
DX: M79.601 Pain in right arm (principal)
CPT/HCPCS: 73030; 73070

== ENCOUNTER 2024-03-06 22:37 | Emergency (ER) | payer OTHER, SELFPAY ==
[2024-03-06 22:43] VITALS: BP 136/84; PULSE 77; RESP 16; TEMP 36.6; O2SAT 100; BMI 36.8
--- NOTE | 2024-03-06 23:44 | ED.EXTPRO ---
HPI - Extremity Problem General Chief complaint: Extremity Problem,Nontraumatic Stated complaint: lt leg thinks has a blood clot Time Seen by Provider: 03/06/24 23:43 Source: patient, RN notes reviewed and old records reviewed Mode of arrival: Ambulatory Limitations: no limitations History of Present Illness HPI Narrative: 38-year-old female history of pulmonary embolism after patient was anticoagulated on Eliquis for proximally year and transitioned off by her physician. Patient states she was started noticed a little bit of calf pain down low that it has moved up to the upper calf over the past 1-2 days. She states it is little bit painful to walk on particularly standing. She has not noticed any swelling, redness or skin changes. She denies any recent trauma or injuries. No back pain. Has a little bit of tingling particularly in the bottom of the foot. Patient states no fevers, no chills. No chest pain or shortness of breath. No nausea or vomiting. No issues with diarrhea constipation or other GI or urinary symptoms. Patient states she was not currently on any daily medications. Reports allergies to ketorolac and tramadol. Former smoker, occasional alcohol, no recreational drugs. Related Data Home Medications Medication Instructions Recorded Confirmed apixaban 2.5 mg tablet (Eliquis) 2.5 mg PO BID 12/23/23 12/23/23 semaglutide 0.25 mg or 0.5 mg (2 0.25 mg SUBCUT QWEEK 12/23/23 12/23/23 mg/3 mL) subcutaneous pen injector Previous Rx's Medication Instructions Recorded blood sugar diagnostic (Blood #100 strips 08/11/22 Glucose Test strips) blood-glucose meter (Blood Glucose #1 ea 08/11/22 Monitoring kit) lancets (Comfort Lancets) #100 ea 08/11/22 Allergies Allergy/AdvReac Type Severity Reaction Status Date / Time ketorolac [From Toradol] Allergy Intermediate Hives Verified 12/23/23 07:59 tramadol Allergy Intermediate Hives Verified 12/23/23 07:59 Review of Systems Review of Systems ROS Unobtainable: All systems reviewed & are unremarkable except as noted in HPI and below Patient History Medical History pulmonary embolism Gestational diabetes mellitus Missed depression Hidradenitis suppurativa COVID-19 virus infection (02/2021) Subcutaneous mass of back Sinusitis Surgical History Anesthesia Trigger finger (~11/10/21) H/O tooth extraction [place] teeth extracted S/P excision of lipoma (08/04/21) Family History Mother Hypertension Diabetes mellitus Mental health problem Social History marital status: unmarried,living together number of children: 4 household members: significant other and children lives independently: Yes housing: house pets and animals: Yes (1 cat, aware of toxo, kids manage litter box) education level: high school (11th grade) occupational status: employed current occupational exposures/hazards: Yes special juan needs: No seatbelt use: always water heater temp set < 120 deg: Yes working smoke detector in home: Yes fire extinguisher in home: Yes carbon monox detector in home: Yes firearms in home: No do you feel safe at home: Yes Smoking Status: Former smoker Tobacco: How many years used: 20 second hand exposure: No alcohol intake: current substance use type: marijuana (in the past, not recently) during the past year weight has: decreased > 10 lbs well-balanced diet: daily or most days daily servings fruits/ve-4 caffeine: No Type(s) of exercise: walking and other (hiking) frequency: daily additional social history: Pt reports no changes from previous , telephone intake only last completed ~5 months ago and as an experienced mother pt denies a need to repeat this intake. Smoking Status: Former smoker alcohol intake frequency: holidays/special occasions only Exam Narrative Exam Narrative: GENERAL: Alert and oriented x three, female in mild distress HEENT: Head normocephalic, atraumatic, EOMI, pupils reactive, face symmetric, moist mucous membranes NECK: Supple, full range of motion CARDIOVASCULAR: Regular rate and rhythm without murmurs, rubs or gallops. RESPIRATORY: Breath sounds equal bilaterally, no wheezes rales or rhonchi. ABDOMEN: Soft, nontender. Normoactive bowel sounds all 4 quadrants. No guarding or rebound, rigidity, no mass EXTREMITIES: Normal range of motion, no clubbing or edema. Neurovascularly intact. Patient has positive calf squeeze. No swelling, no warmth erythema or other skin changes. No bony tenderness. She is full range of motion. 2+ dorsalis pedis with normal sensation throughout. NEUROLOGICAL: Cranial nerves II through XII grossly intact. Moving all extremities SKIN: Warm, dry, no petechiae, no rashes or lesions. Initial Vital Signs Initial Vital Signs: Vital Signs Temperature 97.9 F 03/06/24 22:43 Pulse Rate 77 03/06/24 22:43 Respiratory Rate 16 03/06/24 22:43 Blood Pressure 136/84 03/06/24 22:43 Pulse Oximetry 100 03/06/24 22:43 Oxygen Delivery Method Room Air 03/06/24 22:43 Course Orders Ordered: ED Orders 03/06/24 23:48 US periph venous low extrem lt Stat Vital Signs Vital signs: Vital Signs - 8 hr 03/06/24 22:43 03/07/24 01:35 Temperature 97.9 F Pulse Rate 77 73 Respiratory Rate 16 17 Blood Pressure 136/84 120/64 Pulse Oximetry 100 99 Oxygen Delivery Method Room Air Room Air MDM - Extremity (Nontraumatic) MDM Narrative Medical decision making narrative: Plan for DVT ultrasound rule out DVT patient has history related to prior and Csection. Has been off of her prior anticoagulant for about 1 month. Was on Eliquis before. Denies any other systemic symptoms currently patient's vital signs are stable. DVT ultrasound is negative for acute change. Exam does not show any other red flag changes no signs infection/ Discussed with the patient she should follow up for recheck if having persistent symptoms for repeat ultrasound. Discharge Plan Departure Patient Disposition: Home Clinical Impression: Calf pain Activity Restrictions/Additional Instructions: Your DVT ultrasound is negative. If you are having persistent symptoms please follow up for recheck. Please return if you have fevers increasing redness or swelling, rapidly worsening pain new numbness or weakness, inability to lift or move your leg or other new or concerning changes. Prescriptions: No Action (DME) blood-glucose meter [Blood Glucose Monitoring] Kit See Rx Instructions .Route Qty: 1 0RF Rx Instructions: Check AM fasting BS and 1 hour after each meal (DME) Blood Glucose Test Strip See Rx Instructions .Route Qty: 100 2RF Rx Instructions: Check AM fasting, and 1 hour after each meal (DME) lancets [Comfort Lancets] Misc See Rx Instructions .Route Qty: 100 2RF Rx Instructions: Check Am fasting BS, check 1 hour after each meal daily Eliquis 2.5 mg tablet 2.5 mg PO BID semaglutide 0.25 mg or 0.5 mg (2 mg/3 mL) pen injector 0.25 mg SUBCUT QWEEK Rx Instructions: for 4 weeks Referrals: Joseph Garcia MD [Primary Care Provider] - Stand Alone Forms: Patient Portal/API/Survey
--- NOTE | 2024-03-06 23:48 | DI.US.S_ITS ---
PROCEDURE: US PERIPH VENOUS LOW EXTREM LT INDICATIONS: LEFT CALF PAIN; HX DVT TECHNIQUE: Real-time imaging, as well as color and pulse Doppler interrogation, were performed of the lower extremity deep veins from the inguinal ligament to the popliteal fossa, with documentation of the visualized calf veins. COMPARISON: [facility], [facility] VENOUS LOW EXTREM LT, 04/02/2022, 11:11. FINDINGS: The common femoral, femoral, popliteal, and the visualized calf veins are normally compressible, and free of intraluminal thrombus. Color and pulse Doppler demonstrate normal phasic intraluminal flow. There is normal augmentation response to distal compression maneuver. IMPRESSION: No findings of lower extremity deep venous thrombosis. Note: Concordant preliminary findings given to ordering ED provider by spray dyer at time of imaging completion. Approved by: Irma Mcmullen M.D.,Ph.D. on 03/07/2024 at 1:22
[2024-03-07 01:35] VITALS: BP 120/64; PULSE 73; RESP 17; O2SAT 99
== END 2024-03-07 01:36 | disposition home or self-care (01) ==
PROVIDERS: Emergency Provider Emergency Medicine; Family Provider Family Medicine; PCP Family Medicine
DX: M79.605 Pain in left leg (principal)
CPT/HCPCS: 93971; 99283

== ENCOUNTER → 2024-04-05 06:56 | Outpatient (CLI) | payer OTHER, SELFPAY ==
--- NOTE | 2024-04-05 06:57 | DI.ECHO.S_ITS ---
[facility]+ [facility] : : [id number] : : [place] : : [id number] : : Phone: [phone] Echocardiogram Report + + :Name: AUDREY ALONZO Study Date: 04/05/2024 Height: 65 in : :Hospital ReadingLocation: Weight: 218 lb : : Gender: Female BSA: 2.1 m2 : :: 1985 Age: 38 yrs BP: 122/88 mmHg: :Reason For Study: RE-EVAL RV DILATAIONA ND DYSFUNCTION : :Ordering Physician: LANI, : :BRE Performed By: Santa Bynum : :Referring: BRE GARIBAY : + + Interpretation Summary 1) Normal left ventricular thickness, size, wall motion, and systolic function (EF 55-60%). 2) Normal right ventricular size and function. 3) No significant valvular abnormalities. 4) Compared to the Echo done 10/25/2022, RV dilatation has resolved on this study. Procedure: Images were not obtained from all of the standard acoustic windows due to the limited scope of the study. The study quality was technically adequate. Comparison is made with the echocardiogram of 10/25/2022. The patient was in sinus rhythm with heart rates between 74-77 bpm during the exam. Left Ventricle: The left ventricle is normal in size and wall thickness. The ejection fraction is estimated to be 55-60%. Left ventricular systolic function appears normal without focal wall motion abnormalities. Right Ventricle: The right ventricle is normal in size and function. Atria: The left atrium grossly appears normal in size. The right atrium grossly appears normal in size. Aortic Valve: The aortic valve is trileaflet. The aortic valve opens well. No aortic regurgitation is present. Tricuspid Valve: The tricuspid valve leaflets are thin and pliable. There is mild tricuspid regurgitation. The right ventricular systolic pressure is estimated to be at least 26 mmHg based on an estimated right atrial pressure of 3 mm Hg. Pulmonic Valve: There is mild to moderate pulmonic regurgitation. Great Vessels: The IVC is of normal diameter and collapses greater than 50% with a sniff. This suggests a low right atrial pressure of 3 mm Hg. Pericardium/ Pleura There is no pericardial effusion. There is no pleural effusion. MMode/2D Measurements & Calculations LVIDd: 4.5 cm IVC diam: 1.4 cm LVIDs: 3.3 cm FS: 26.8 % IVSd: 0.75 cm LVPWd: 0.76 cm LV lynn. diameter/BSA (cm/m^2): 2.2 LV sys. diameter/BSA (cm/m^2): 1.6 RVD1 (basal): 3.6 cm RVD2 (mid): 3.0 cm TAPSE: 2.1 cm Doppler Measurements & Calculations TR max kaye: 238.5 cm/sec TR max P.9 mmHg PA V2 max: 132.2 cm/sec PA V2 mean: 91.5 cm/sec PA mean P.8 mmHg PA pr(Accel): 15.6 mmHg Reading Physician:10:14 AM
== END ==
PROVIDERS: Family Provider Family Medicine; PCP Family Medicine; Referring Provider Internal Medicine; Visit Provider Internal Medicine
DX: O88 Obstetric embolism (principal); I26.09 Other pulmonary embolism with acute cor pulmonale; O99.419 Diseases of the circulatory system complicating pregnancy, unspecified trimester; I07.1 Rheumatic tricuspid insufficiency
CPT/HCPCS: 93307

== ENCOUNTER → 2024-06-20 11:35 | Outpatient (CLI) | payer OTHER, SELFPAY ==
--- NOTE | 2024-06-20 11:37 | DI.US.S_ITS ---
PROCEDURE: US PERIP VENOUS LOW EXTREM LT INDICATIONS: LEFT CALF PAIN / HISTORY OF DVT TECHNIQUE: Real-time imaging, as well as color and pulse Doppler interrogation, were performed of the lower extremity deep veins from the inguinal ligament to the popliteal fossa, with documentation of the visualized calf veins. COMPARISON: [facility], , [facility] VENOUS LOW EXTREM LT, 03/07/2024, 0:12. FINDINGS: The common femoral, femoral, popliteal, and the visualized calf veins are normally compressible, and free of intraluminal thrombus. Color and pulse Doppler demonstrate normal phasic intraluminal flow. There is normal augmentation response to distal compression maneuver. Multiple prominent inguinal lymph nodes measuring up to 0.9 cm in short axis. There is a left medial groin, there is a complex structure with vascularity measuring 3.1 x 3.1 x 0.8 cm. No abnormalities identified within the left posterior calf area of pain. IMPRESSION: No findings of lower extremity deep venous thrombosis. Complex structure with vascularity within the left medial groin, possibly hematoma with peripheral vascularity. Recommend correlation with physical exam of this area and follow-up ultrasound as clinically indicated. Dictated by: Omar Mitchell M.D. on 06/20/2024 at 13:45 Approved by: Omar Mitchell M.D. on 06/20/2024 at 13:46
== END ==
PROVIDERS: Family Provider Family Medicine; PCP Family Medicine; Referring Provider Family Medicine; Visit Provider Family Medicine
DX: M79.662 Pain in left lower leg (principal); Z86.718 Personal history of other venous thrombosis and embolism
CPT/HCPCS: 93971

== ENCOUNTER → 2024-07-24 09:20 | Outpatient (CLI) | payer OTHER, SELFPAY ==
--- NOTE | 2024-07-24 | DI.US.S_ITS ---
PROCEDURE: US PERIP VENOUS LOW EXTREM LT INDICATIONS: Pain in left calf TECHNIQUE: Real-time imaging, as well as color and pulse Doppler interrogation, were performed of the lower extremity deep veins from the inguinal ligament to the popliteal fossa, with documentation of the visualized calf veins. COMPARISON: [facility], , [facility] VENOUS LOW EXTREM LT, 06/20/2024, 12:46. FINDINGS: The common femoral, femoral, popliteal, and the visualized calf veins are normally compressible, and free of intraluminal thrombus. Color and pulse Doppler demonstrate normal phasic intraluminal flow. There is normal augmentation response to distal compression maneuver. IMPRESSION: No findings of lower extremity deep venous thrombosis. Dictated by: Zhen Oneill M.D. on 07/24/2024 at 10:51 Approved by: Zhen Oneill M.D. on 07/24/2024 at 10:51
== END ==
PROVIDERS: Family Provider Family Medicine; PCP Family Medicine; Referring Provider Family Medicine; Visit Provider Family Medicine
DX: M79.662 Pain in left lower leg (principal)
CPT/HCPCS: 93971

== ENCOUNTER 2024-11-02 20:36 | Emergency (ER) | payer OTHER, SELFPAY ==
[2024-11-02 20:59] VITALS: BP 139/69; PULSE 87; RESP 17; TEMP 37.2; O2SAT 99; BMI 33.5
--- NOTE | 2024-11-02 21:47 | ED.HA ---
HPI - Headache General Chief Complaint: Headache Stated Complaint: migraine, vomiting, poss covid Time Seen by Provider: 11/02/24 21:47 Mode of arrival: Family Vehicle History of Present Illness HPI Narrative: Patient here with partner for complaints of migraine headache. Frontal headache with nausea and vomiting. Light sensitive and sound sensitive. Patient has had migraine headaches like this since 17 years of age. Same pattern same intensity same symptoms. No CT indicated at this time. No new stressors. Denies does not want a test. She states pacing around walking around helps her Related Data Home Medications ?Medication ?Instructions ?Recorded ?Confirmed semaglutide 0.25 mg or 0.5 mg (2 0.25 mg SUBCUT QWEEK 12/23/23 04/10/24 mg/3 mL) subcutaneous pen injector Previous Rx's ?Medication ?Instructions ?Recorded blood sugar diagnostic (Blood #100 strips 08/11/22 Glucose Test strips) blood-glucose meter (Blood Glucose #1 ea 08/11/22 Monitoring kit) lancets (Comfort Lancets) #100 ea 08/11/22 ondansetron 4 mg disintegrating 4 mg PO Q6H PRN nausea and 11/02/24 tablet vomiting #20 tabs prochlorperazine maleate 10 mg 10 mg PO Q8H PRN nausea and 11/02/24 tablet vomiting #14 tabs Allergies Allergy/AdvReac Type Severity Reaction Status Date / Time ketorolac (From Toradol) Allergy Intermediate Hives Verified 11/02/24 21:00 tramadol Allergy Intermediate Hives Verified 11/02/24 21:00 Review of Systems Review of Systems Narrative: GENERAL: Negative chills, fatigue, malaise, fever, sweats. HEENT: Negative sinus pain, ear pain, sore throat RESPIRATORY: Negative dyspnea, cough CARDIOVASCULAR: Negative chest pain, palpitations GASTROINTESTINAL: Positive vomiting, nausea, negative abdominal pain : Negative dysuria, frequency, hematuria MUSCULOSKELETAL: Negative muscle or bony pain SKIN: Negative rash, skin lesions NEUROLOGIC: Negative weakness, numbness, positive headache ROS Unobtainable: All systems reviewed & are unremarkable except as noted in HPI and below Patient History Medical History pulmonary embolism Gestational diabetes mellitus Missed depression Hidradenitis suppurativa COVID-19 virus infection (02/2021) Subcutaneous mass of back Sinusitis Surgical History Anesthesia Trigger finger (~11/10/21) H/O tooth extraction [place] teeth extracted S/P excision of lipoma (08/04/21) Family History Mother Hypertension Diabetes mellitus Mental health problem Social History marital status: unmarried,living together number of children: 4 household members: significant other and children lives independently: Yes housing: house pets and animals: Yes (1 cat, aware of toxo, kids manage litter box) education level: high school (11th grade) occupational status: employed current occupational exposures/hazards: Yes special juan needs: No seatbelt use: always water heater temp set < 120 deg: Yes working smoke detector in home: Yes fire extinguisher in home: Yes carbon monox detector in home: Yes firearms in home: No do you feel safe at home: Yes Smoking Status: Current every day smoker Tobacco: How many years used: 20 second hand exposure: No alcohol intake: current substance use type: marijuana (in the past, not recently) during the past year weight has: decreased > 10 lbs well-balanced diet: daily or most days daily servings fruits/ve-4 caffeine: No Type(s) of exercise: walking and other (hiking) frequency: daily additional social history: Pt reports no changes from previous , telephone intake only last completed ~5 months ago and as an experienced mother pt denies a need to repeat this intake. Smoking Status: Current every day smoker tobacco type: vaping alcohol intake frequency: holidays/special occasions only Alcohol type: hard liquor Exam Narrative Exam Narrative: GENERAL: in no distress, not toxic not dyspneic HEAD: Normocephalic. EYES: Pupils equal round no papilledema or photophobia with funduscope bilaterally ENT: Mucous membranes moist. NECK: Trachea midline. Full active range of motion no meningeal signs, no neck pain. CARDIOVASCULAR: Regular rate and rhythm RESPIRATORY: Clear to auscultation. Breath sounds equal bilaterally. No wheezes, rales, or rhonchi. GASTROINTESTINAL: Abdomen soft, non-tender EXTREMITIES: No gross deformities. BACK: No flank tenderness. NEURO: AOx4. Clear speech no facial droop steady self gait in room no ataxia. Not antalgic. SKIN: Warm and dry PSYCH: Not anxious, is cooperative Initial Vital Signs Initial Vital Signs: Vital Signs Temperature 98.9 F 11/02/24 20:59 Pulse Rate 87 11/02/24 20:59 Respiratory Rate 17 11/02/24 20:59 Blood Pressure 139/69 11/02/24 20:59 Pulse Oximetry 99 11/02/24 20:59 Oxygen Delivery Method Room Air 11/02/24 20:59 Course Orders Ordered: Discontinued Medications Al Hydrox/Mg Hydrox/Simethicone 30 ml/ Lidocaine HCl 15 ml 0 ml PO NOW ONE Stop: 11/02/24 23:28 Last Admin: 11/02/24 23:32 Dose: Not Given Documented By: ADITI Dexamethasone (Dexamethasone 10 Mg/Ml Vial) 10 mg IV NOW ONE Stop: 11/02/24 21:52 Last Admin: 11/02/24 22:15 Dose: 10 mg Documented By: ADITI Diphenhydramine HCl (Diphenhydramine 50 Mg/Ml Vial) 50 mg IV NOW ONE Stop: 11/02/24 21:51 Last Admin: 11/02/24 22:15 Dose: 50 mg Documented By: ADITI Sodium Chloride (Normal Saline 0.9%) 1,000 mls @ 1,000 mls/hr IV BOLUS ONE Stop: 11/02/24 22:49 Last Infusion: 11/02/24 23:27 Dose: Infused Documented By: Admin: 11/02/24 22:15 Dose: 1,000 mls/hr Documented By: ADITI Ondansetron HCl (Ondansetron 4 Mg/2 Ml Inj) 4 mg IV NOW PRN PRN Reason: Nausea And Vomiting Ondansetron HCl (Ondansetron 4 Mg Odt) 4 mg PO NOW PRN PRN Reason: Nausea And Vomiting Prochlorperazine (Prochlorperazine 10 Mg/2 Ml Vial) 10 mg IV NOW ONE Stop: 11/02/24 21:51 Last Admin: 11/02/24 22:15 Dose: 10 mg Documented By: ADITI Vital Signs Vital signs: Vital Signs - 8 hr 11/02/24 20:59 Temperature 98.9 F Pulse Rate 87 Respiratory Rate 17 Blood Pressure 139/69 Pulse Oximetry 99 Oxygen Delivery Method Room Air MDM - Headache Lab Data Labs: Lab Results 11/02/24 Range/Units 21:10 SARS-CoV-2 (PCR) Positive H (Negative) Influenza A (RT-PCR) Flu a negative (NEGATIVE) Influenza B (RT-PCR) Flu b negative (NEGATIVE) RSV (PCR) Negative (Negative) MDM Narrative Medical decision making narrative: Patient here with partner for complaints of migraine headache. Frontal headache with nausea and vomiting. Light sensitive and sound sensitive. Patient has had migraine headaches like this since 17 years of age. Same pattern same intensity same symptoms. No CT indicated at this time. No new stressors. Denies does not want a test. She states pacing around walking around helps her MDM After history and exam, no blood work or imaging indicated at this time. This is patient's typical migraine headache pattern and intensity. Decadron Benadryl Compazine normal saline will be ordered Differential considered: Includes but not limited to migraine headache Medical records reviewed: No recent visit for this complaint Laboratory results: Positive COVID Re-evaluations: 11:40 p.m.. Patient feeling much better sleeping/resting comfortably. Awoke her to review results. She is headache free. Reviewed results with her in she desires discharge home. She did test positive for COVID. Likely triggering her migraine headache. Discussion: Appropriate for discharge home. Exam is reassuring. Pain relief with conservative treatment. Clinically not meningitis as patient has resolved symptoms with conservative treatment. No blood work or imaging or lumbar puncture indicated. Return precautions reviewed with patient. They desire discharge home. No meningeal signs. No neck pain no fever Diagnosis: Migraine headache, COVID infection Discharge Plan Departure Patient Disposition: Home Clinical Impression: COVID Migraine Qualifiers: Migraine type: unspecified Status migrainosus presence: without status migrainosus Intractability: not intractable Qualified Code(s): G43.909 - Migraine, unspecified, not intractable, without status migrainosus Instructions: DI for Migraine, DI for COVID-19 (Suspected or Confirmed ) Activity Restrictions/Additional Instructions: I am glad you are feeling better. No driving operating machinery tonight. Get plenty of rest. Keep well hydrated. You did test positive for COVID. Please see family doctor in a week for re-evaluation. Return if worse if any questions or concerns. May continue Tylenol for pain. Prescriptions: New prochlorperazine maleate 10 mg tablet 10 mg PO Q8H PRN (Reason: nausea and vomiting) Qty: 14 0RF ondansetron 4 mg tablet,disintegrating 4 mg PO Q6H PRN (Reason: nausea and vomiting) Qty: 20 0RF No Action (DME) blood-glucose meter [Blood Glucose Monitoring] Kit See Rx Instructions .Route Qty: 1 0RF Rx Instructions: Check AM fasting BS and 1 hour after each meal (DME) Blood Glucose Test Strip See Rx Instructions .Route Qty: 100 2RF Rx Instructions: Check AM fasting, and 1 hour after each meal (DME) lancets [Comfort Lancets] Misc See Rx Instructions .Route Qty: 100 2RF Rx Instructions: Check Am fasting BS, check 1 hour after each meal daily semaglutide 0.25 mg or 0.5 mg (2 mg/3 mL) pen injector 0.25 mg SUBCUT QWEEK Rx Instructions: for 4 weeks Referrals: Joseph Garcia MD [Primary Care Provider, Family Practice] Stand Alone Forms: Patient Portal/API
[2024-11-02 21:53] LABS: COVID-19 CEPHEID 4-PLEX PCR POSITIVE (Negative); Influenza A - CEPHEID Flu A NEGATIVE (NEGATIVE); Influenza B - CEPHEID Flu B NEGATIVE (NEGATIVE)
[2024-11-02] MEDS: SODIUM CHLORIDE 0.9% 1,000 ML 1000 ML IV (22:15)
[2024-11-02] MEDS: diphenhydrAMINE 50 MG/ML VIAL IV (22:15)
[2024-11-02] MEDS: PROCHLORPERAZINE 10 MG/2 ML VIAL IV (22:15)
[2024-11-03 00:01] VITALS: BP 127/65; PULSE 78; RESP 17; O2SAT 97
== END 2024-11-03 00:03 | disposition home or self-care (01) ==
PROVIDERS: Emergency Provider Emergency Medicine; Family Provider Family Medicine; PCP Family Medicine
DX: U07.1 COVID-19 (principal); G43.909 Migraine, unspecified, not intractable, without status migrainosus; R11.2 Nausea with vomiting, unspecified
CPT/HCPCS: 36415; 87637; 96361; 96374; 96375; 99284; J0780; J1100; J1200

== ENCOUNTER → 2024-12-24 10:47 | Outpatient (CLI) | payer OTHER, SELFPAY ==
--- NOTE | 2024-12-24 10:49 | DI.RAD.S_ITS ---
PROCEDURE: XR LUMBAR SPINE 2-3V INDICATIONS: FALL FROM STAIRS AND STEPS TECHNIQUE: 3 views of the lumbar spine were acquired. COMPARISON: None. FINDINGS: Bones: 5 [id number] vertebrae are present. There is normal bony alignment. No vertebral body compression fractures. No suspicious bony lesions. Soft tissues: Overlying bowel gas pattern is normal. No suspicious soft tissue calcifications. IMPRESSION: No acute compression fracture or spondylolisthesis in lumbar spine. Dictated by: Jose Bruno M.D. on 12/24/2024 at 13:50 Approved by: Jose Bruno M.D. on 12/24/2024 at 13:51
== END ==
PROVIDERS: Family Provider Family Medicine; PCP Family Medicine; Referring Provider Family Medicine; Visit Provider Family Medicine
DX: M54.50 Low back pain, unspecified (principal)
CPT/HCPCS: 72100

== ENCOUNTER → 2025-01-16 10:44 | Outpatient (CLI) | payer OTHER, SELFPAY ==
--- NOTE | 2025-01-16 11:17 | DI.RAD.S_ITS ---
PROCEDURE: XR FOOT LT MIN 3V INDICATIONS: ACUTE LT FOOT PAIN TECHNIQUE: 3 views of the foot were acquired. COMPARISON: None. FINDINGS: Bones: No fractures or dislocations. No suspicious bony lesions. Soft tissues: No tibiotalar joint effusion. Achilles tendon appears normal. IMPRESSION: No acute bony abnormality. Dictated by: Eboni Palacios M.D. on 01/18/2025 at 4:44 Approved by: Eboni Palacios M.D. on 01/18/2025 at 4:45
== END ==
PROVIDERS: Family Provider Family Medicine; PCP Family Medicine; Referring Provider Family Medicine; Visit Provider Family Medicine
DX: M25.572 Pain in left ankle and joints of left foot (principal); M79.672 Pain in left foot
CPT/HCPCS: 73630